=== PATIENT | female | born 1935 | race Caucasian/White ===

== ENCOUNTER 2020-10-21 09:04 | Outpatient (REF) | payer MEDICARE, SELFPAY ==
--- NOTE | ~2020-10-21 | MM_ITS ---
EXAMINATION: MM SCREENING DIGITAL BREAST TOMOSYNTHESIS, BILATERAL CLINICAL INFORMATION: Screening. Asymptomatic. Prior history LCIS The lifetime risk of breast cancer based on the Tyrer-Cuzick Model is 8%. COMPARISON: Mammography: 10/16/2019, 10/10/2018, 09/24/2017, 08/28/2017. TECHNIQUE: Digital breast tomosynthesis is performed in both the craniocaudal and mediolateral oblique views along with computer-aided detection (CAD). Synthesized 2D images are generated from the tomosynthesis. FINDINGS: There are scattered areas of fibroglandular density (ACR BI-RADS breast composition Category b). There are no significant masses, abnormal calcifications, or other abnormalities. Parenchymal pattern is similar to prior exams. Again, there is a stable mass anterior lower inner quadrant with adjacent biopsy clip marker. Numerous bilateral calcifications are similar in number and distribution to prior exams. No significant changes. MM/MM tomosynthesis screening BI IMPRESSION: There are no significant changes from prior exams. ASSESSMENT: BI-RADS 2: Benign RECOMMENDATION: Routine annual mammography screening. This patient's information was entered into a reminder system with a target due date for their next mammogram.
== END 2020-10-21 09:05 | disposition home or self-care (01) ==
LOC: HO.MAMMO 09:04
PROVIDERS: PCP Internal Medicine; Visit Provider Internal Medicine
DX: Z12.31 Encounter for screening mammogram for malignant neoplasm of breast (principal)
CPT/HCPCS: 77063; 77067

== ENCOUNTER 2021-10-24 12:04 | Outpatient (REF) | payer MEDICARE, SELFPAY ==
--- NOTE | ~2021-10-24 | MM_ITS ---
EXAMINATION: MM SCREENING DIGITAL BREAST TOMOSYNTHESIS, BILATERAL CLINICAL INFORMATION: Screening. Asymptomatic. Prior history LCIS. COMPARISON: Mammography: 10/21/2020, 10/16/2019, 10/10/2018 TECHNIQUE: Digital breast tomosynthesis is performed in both the craniocaudal and mediolateral oblique views along with computer-aided detection (CAD). Synthesized 2D images are generated from the tomosynthesis. FINDINGS: There are scattered areas of fibroglandular density (ACR BI-RADS breast composition Category b). There is stable nodule anterior 7:00 left breast with adjacent biopsy clip marker. The breast parenchymal pattern is similar to prior studies and there is no interval mass or architectural abnormality or abnormal calcifications. Numerous bilateral punctate and coarse and vascular calcifications are again seen similar in number and distribution to prior studies. The axilla are unremarkable. There are no significant changes. MM/MM tomosynthesis screening BI IMPRESSION: No significant changes from prior studies. ASSESSMENT: BI-RADS 2: Benign RECOMMENDATION: Routine annual mammography screening. This patient's information was entered into a reminder system with a target due date for their next mammogram.
== END 2021-10-24 12:05 | disposition home or self-care (01) ==
LOC: HO.MAMMO 12:04
PROVIDERS: PCP Internal Medicine; Visit Provider Internal Medicine
DX: Z12.31 Encounter for screening mammogram for malignant neoplasm of breast (principal)
CPT/HCPCS: 77063; 77067

== ENCOUNTER 2021-12-27 07:28 | Outpatient (REF) | payer MEDICARE, SELFPAY ==
--- NOTE | ~2021-12-27 | XR_ITS ---
EXAMINATION: XR LUMBOSACRAL SPINE CLINICAL INFORMATION: Low back pain and right-sided sciatica COMPARISON: None TECHNIQUE: Three views of the lumbosacral spine. FINDINGS: There is curvature of the lumbar spine to the right. Bone alignment is otherwise normal. No fracture or dislocation is seen. There is multilevel degenerative disc disease and spondylosis. There is multilevel facet arthritis. There is evidence of atherosclerotic disease. XR/XR lumbar spine 2-3V IMPRESSION: Scoliosis and degenerative changes.
[2021-12-27 11:33] LABS: Appearance Urine CLEAR; Color Urine YELLOW; Glucose Urine UA NEG (NEG); Leukocyte Esterase Urine NEG (NEG); Nitrite Urine NEG (NEG); Specific Gravity - Urine 1.015 (1.005-1.025); Urine Blood NEG (NEG); Urine Ketones NEG (NEG); Urine Protein TRACE MG/DL (NEG-TRACE)
[2021-12-27 11:35] LABS: MANUAL DIFF FLAG NO
[2021-12-27 11:44] LABS: Basophils Absolute Auto 0.1 X10*3/uL (0.0-0.2); Basophils Percent Auto 1.3 % (0-2); Eosinophils Absolute Auto 0.3 X10*3/uL (0.0-0.4); Eosinophils Percent Auto 5.2 % (0-4); Hematocrit 39.6 % (37.0-47.0); Hemoglobin 13.1 g/dl (12.0-16.0); Imm Gran Abs Auto 0.01 X10*3/uL (0.00-0.03); Imm Gran Pct Auto 0.2 % (0.0-0.4); Lymphocytes Absolute Auto 1.5 X10*3/uL (1.2-4.9); Lymphocytes Percent Auto 28.1 % (20-40); Mean Corpuscular HGB Conc 33.1 g/dl (31.0-35.0); Mean Corpuscular Hemoglobin 31.8 pg (27.0-33.0); Mean Corpuscular Volume 96.1 fL (80.0-98.0); Mean Platelet Volume 10.9 fL (9.4-12.3); Monocytes Absolute Auto 0.5 X10*3/uL (0.1-1.2); Monocytes Percent Auto 9.2 % (2-11); Neutrophils Absolute Auto 2.9 x10*3/uL (2.0-8.3); Platelet Count 227 X10*3/uL (160-400); Red Blood Count 4.12 X10*6/uL (4.20-5.50); Red Cell Distribution Width 13.2 % (11.0-16.0); White Blood Count 5.2 X10*3/uL (4.8-10.8)
[2021-12-27 11:54] LABS: Alanine Aminotransferase 11 U/L (0-31); Albumin Level 4.1 g/dL (3.5-5.0); Alkaline Phosphatase 66 U/L (39-117); Anion Gap 13 (12-20); Aspartate Amino Transferase 16 U/L (5-31); Bilirubin Total 1.3 mg/dL (0.0-1.0); Blood Urea Nitrogen 17 mg/dL (9-16); Calcium 9.7 mg/dL (8.4-10.2); Carbon Dioxide 28 mmol/L (22-29); Chloride 102 mmol/L (96-108); Cholesterol 104 mg/dL; Estimated Glomerular Filt Rate > 60; Glucose Fasting 111 mg/dL (60-99); HDL Cholesterol 55 mg/dL; Iron 77 mcg/dL (30-160); LDL Cholesterol Calculated 35 mg/dl; Percent Iron Saturation 33 % (15-50); Potassium 4.1 mmol/L (3.3-5.1); Sodium 139 mmol/L (135-145); Total Iron Binding Capacity 235 mcg/dL (228-428); Total Protein 6.8 g/dL (6.5-8.0); Triglycerides 73 mg/dL; Unsaturated Iron Binding 158 ug/dL
[2021-12-27 11:56] LABS: Estimated Average Glucose 120 mg/dL; Hemoglobin A1c % 5.8 %
[2021-12-27 11:59] LABS: RBC Urine 0 /HPF (0); Renal Epithelial Cells Urine TRACE /LPF; Squamous Epithelial Cell Urine TRACE /LPF; WBC Urine 0 /HPF (0-4)
[2021-12-27 12:18] LABS: Ferritin 37 ng/mL (10-250); Thyroid Stimulating Hormone 3.44 uIU/mL (0.32-4.0); Vitamin D 25-OH Total 36.5 ng/mL (>30)
[2021-12-27 12:58] LABS: Creatinine Urine 117.47 mg/dL; Microalbum/Creatinine Ratio Ur 94.4 ug/mg cr
[2021-12-27 13:58] LABS: Folate > 20.0 ng/mL (> or = 4.0); Vitamin B12 158 pg/mL (200-900)
== END 2021-12-27 07:29 | disposition home or self-care (01) ==
LOC: HO.HMGCLDS 07:28
PROVIDERS: Visit Provider Internal Medicine
DX: E11.9 Type 2 diabetes mellitus without complications (principal); M54.41 Lumbago with sciatica, right side; I10 Essential (primary) hypertension; E78.00 Pure hypercholesterolemia, unspecified; E83.119 Hemochromatosis, unspecified; E53.8 Deficiency of other specified B group vitamins
CPT/HCPCS: 36415; 72100; 80053; 80061; 81001; 82043; 82306; 82607; 82728; 82746; 83036; 83540; 84443; 85025

== ENCOUNTER 2022-12-06 09:04 | Outpatient (REF) | payer MEDICARE, SELFPAY ==
[2022-12-06 11:33] LABS: MANUAL DIFF FLAG NO
[2022-12-06 11:49] LABS: Basophils Absolute Auto 0.1 X10*3/uL (0.0-0.2); Basophils Percent Auto 1.8 % (0-2); Eosinophils Absolute Auto 0.4 X10*3/uL (0.0-0.4); Eosinophils Percent Auto 5.6 % (0-4); Hematocrit 40.2 % (37.0-47.0); Hemoglobin 13.3 g/dl (12.0-16.0); Imm Gran Abs Auto 0.02 X10*3/uL (0.00-0.03); Imm Gran Pct Auto 0.3 % (0.0-0.4); Lymphocytes Absolute Auto 1.5 X10*3/uL (1.2-4.9); Lymphocytes Percent Auto 23.1 % (20-40); Mean Corpuscular HGB Conc 33.1 g/dl (31.0-35.0); Mean Corpuscular Hemoglobin 31.4 pg (27.0-33.0); Mean Corpuscular Volume 94.8 fL (80.0-98.0); Mean Platelet Volume 11.1 fL (9.4-12.3); Monocytes Absolute Auto 0.6 X10*3/uL (0.1-1.2); Monocytes Percent Auto 8.9 % (2-11); Neutrophils Percent Auto 60.3 % (45-73); Platelet Count 231 X10*3/uL (160-400); Red Blood Count 4.24 X10*6/uL (4.20-5.50); Red Cell Distribution Width 12.8 % (11.0-16.0); White Blood Count 6.6 X10*3/uL (4.8-10.8)
[2022-12-06 12:14] LABS: Alanine Aminotransferase 15 U/L (0-31); Albumin Level 4.2 g/dL (3.5-5.0); Alkaline Phosphatase 76 U/L (39-117); Anion Gap 13 (12-20); Aspartate Amino Transferase 20 U/L (5-31); Bilirubin Total 1.7 mg/dL (0.0-1.0); Blood Urea Nitrogen 11 mg/dL (9-16); Calcium 9.9 mg/dL (8.4-10.2); Carbon Dioxide 28 mmol/L (22-29); Chloride 106 mmol/L (96-108); Cholesterol 108 mg/dL; Estimated Glomerular Filt Rate > 60; Glucose Fasting 102 mg/dL (60-99); HDL Cholesterol 58 mg/dL; Iron 62 mcg/dL (30-160); LDL Cholesterol Calculated 37 mg/dl; Percent Iron Saturation 29 % (15-50); Potassium 5.4 mmol/L (3.3-5.1); Sodium 142 mmol/L (135-145); Total Iron Binding Capacity 216 mcg/dL (228-428); Total Protein 6.8 g/dL (6.5-8.0); Triglycerides 69 mg/dL; Unsaturated Iron Binding 154 ug/dL
[2022-12-06 12:19] LABS: Estimated Average Glucose 114 mg/dL; Hemoglobin A1c % 5.6 %
[2022-12-06 12:56] LABS: Ferritin 34 ng/mL (10-250); Folate > 20.0 ng/mL (> or = 4.0); Thyroid Stimulating Hormone 3.04 uIU/mL (0.32-4.0); Vitamin B12 1248 pg/mL (200-900); Vitamin D 25-OH Total 41.1 ng/mL (>30)
== END 2022-12-06 09:05 | disposition home or self-care (01) ==
LOC: HO.HMGCLDS 09:04
PROVIDERS: PCP Internal Medicine; Visit Provider Internal Medicine
DX: E11.9 Type 2 diabetes mellitus without complications (principal); E78.00 Pure hypercholesterolemia, unspecified; I10 Essential (primary) hypertension; E83.119 Hemochromatosis, unspecified; E53.8 Deficiency of other specified B group vitamins; M54.31 Sciatica, right side
CPT/HCPCS: 36415; 80053; 80061; 82306; 82607; 82728; 82746; 83036; 83540; 84443; 85025

== ENCOUNTER 2022-12-11 12:03 | Outpatient (REF) | payer MEDICARE, SELFPAY ==
--- NOTE | ~2022-12-11 | MM_ITS ---
EXAMINATION: MM SCREENING DIGITAL BREAST TOMOSYNTHESIS, BILATERAL CLINICAL INFORMATION: Screening. Asymptomatic. Age 87. Prior report 2013 notes history lower left excisional biopsy 2010 (intraductal papilloma and adjacent LCIS). COMPARISON: Prior mammography exams, including most recent 10/24/2021. TECHNIQUE: Digital breast tomosynthesis is performed in both the craniocaudal and mediolateral oblique views along with computer-aided detection (CAD). Synthesized 2D images are generated from the tomosynthesis. FINDINGS: There are scattered areas of fibroglandular density (ACR BI-RADS breast composition Category b). Parenchymal pattern is similar to prior studies. There is no developing density or significant mass or interval architectural abnormality. There is a chronic stable nodule anterior medial left breast with adjacent biopsy clip marker. There are minor post therapy changes on left with mild reduced breast size. Again, there are numerous bilateral punctate and some coarse and vascular calcifications similar in number and distribution. The axilla and skin contours are unremarkable. MM/MM tomosynthesis screening BI IMPRESSION: No mammographic evidence of malignancy. ASSESSMENT: BI-RADS 2: Benign RECOMMENDATION: Routine annual mammography screening. This patient's information was entered into a reminder system with a target due date for their next mammogram.
== END 2022-12-11 12:04 | disposition home or self-care (01) ==
LOC: HO.MAMMO 12:03
PROVIDERS: PCP Internal Medicine; Visit Provider Internal Medicine
DX: Z12.31 Encounter for screening mammogram for malignant neoplasm of breast (principal)
CPT/HCPCS: 77063; 77067

== ENCOUNTER 2022-12-18 08:27 | Outpatient (REF) | payer MEDICARE, SELFPAY ==
--- NOTE | ~2022-12-18 | XR_ITS ---
EXAMINATION: XR HIP, RIGHT CLINICAL INFORMATION: Pain. COMPARISON: None available. TECHNIQUE: Two views of the right hip. FINDINGS: Advanced degenerative osteoarthritis of the right hip with marked predominant superolateral joint space narrowing, subcortical sclerosis and osteophytes. Associated deformity of the femoral head raising the possibility of superimposed osteonecrosis is and fracture. Normal radiographic appearance of the right SI joint and pubic symphysis. Atherosclerotic disease. XR/XR hip RT min 2V IMPRESSION: Advanced degenerative osteoarthritis of the right hip with deformity of the femoral head raising the possibility of superimposed osteonecrosis and fracture.
[2022-12-18 11:03] LABS: Appearance Urine Clear; Color Urine Dark Yellow; Glucose Urine UA Negative (Negative); Leukocyte Esterase Urine Negative (Negative); Nitrite Urine Negative (Negative); PH 5.5 (5.0-9.0); Specific Gravity - Urine 1.025 (1.005-1.025); UMIC TRIGGER UA YES; Urine Blood Negative (Negative); Urine Ketones Trace mg/dL (Negative); Urine Protein 30 (1+) mg/dL (Neg-Trace)
[2022-12-18 11:09] LABS: Bacteria Urine None Seen (None Seen); Hyaline Casts Urine 0-2 /LPF (0-2); RBC Urine 0-2 /HPF (0-2); Squamous Epithelial Cell Urine 0-2 /HPF (0-2); WBC Urine 0-5 /HPF (0-5)
[2022-12-18 12:21] LABS: Creatinine Urine 157.33 mg/dL; Microalbum/Creatinine Ratio Ur 75.6 ug/mg cr
== END 2022-12-18 08:28 | disposition home or self-care (01) ==
LOC: HO.HMGCX 08:27
PROVIDERS: PCP Internal Medicine; Visit Provider Internal Medicine
DX: M25.551 Pain in right hip (principal); I10 Essential (primary) hypertension; E11.9 Type 2 diabetes mellitus without complications
CPT/HCPCS: 73502; 81001; 82043

== ENCOUNTER 2023-01-03 09:00 | Outpatient (REF) | payer MEDICARE, SELFPAY ==
--- NOTE | ~2023-01-03 | XR_ITS ---
EXAMINATION: XR PELVIS CLINICAL INFORMATION: Pain COMPARISON: Right hip x-ray December 2022 TECHNIQUE: AP view of the pelvis. FINDINGS: There is severe right hip osteoarthritis with joint space narrowing and osteophyte formation and increased sclerosis. There is flattening of the right femoral head. The right acetabulum appears shallow and the femoral head is positioned laterally in the acetabulum. The contour of the femoral head is normal questionable for osteonecrosis. The right hip and iliac crest is higher than the left. There is mild left hip osteoarthritis. Bones of the pelvis are unremarkable. Degenerative changes visualized lower lumbar spine. Atherosclerotic disease. XR/XR pelvis 1-2V IMPRESSION: Severe right hip osteoarthritis. Abnormal contour of the femoral head questionable for AVN. The right hip and iliac crest is higher than the left.
== END 2023-01-03 09:01 | disposition home or self-care (01) ==
LOC: HO.HOSX 09:00
PROVIDERS: PCP Internal Medicine; Visit Provider Orthopaedic Surgery
DX: M16.11 Unilateral primary osteoarthritis, right hip (principal); Z79.899 Other long term (current) drug therapy
CPT/HCPCS: 72170; 99202

== ENCOUNTER → 2023-03-12 12:41 | Outpatient (BNVA) | payer MEDICARE, SELFPAY | PROVIDERS: Visit Provider Orthopaedic Surgery ==

== ENCOUNTER 2023-04-04 13:44 | Outpatient (AMB) | payer MEDICARE, SELFPAY ==
--- NOTE | 2023-04-04 13:51 | A.OFFVIS_ITS ---
Intake Vital Signs 04/04/23 13:52 Height 5 ft 2 in Weight 101 lb BMI 18.5 Intake Visit Reasons: Preop RT MERT 04/09/23 NE Intake Note: Kristina an 87 year old female who presents today for a preoperative right MERT on 04/09/23. Pain management agreement reviewed and signed. Allergies azithromycin [From ZITHROMAX] Allergy (Severe, Verified 04/04/23 13:56) SEVERE GI PAIN/PASSED OUT, syncope HPI HPI Comments History of Present Illness Details Ms Lopez presents to the office today for preop visit. She is scheduled for right total hip arthroplasty with Dr. Loving. She continues to have ongoing pain and difficulty with ambulation in the right hip, which is affecting her quality of life; therefore, she has elected to move forward with surgery. 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 Review of Systems Const All systems reviewed & are unremarkable except as noted in HPI and below Physical Exam Vital Signs: BMI result Body Mass Index 18.5 Const General: cooperative and no acute distress Orientation/consciousness: patient oriented x3 HEENT Head: Yes normocephalic and Yes atraumatic Eyes EOM: EOMs intact bilaterally Neck Neck: Yes normal visual inspection and Yes no lymphadenopathy Resp Effort & Inspection: normal respiratory effort and able to speak in complete sentences Cardio Jugular venous distension: no JVD Peripheral pulses: Peripheral pulses 2+ throughout GI Inspection: Yes normal to inspection Palpation (GI): Soft to palpation Skin General skin exam: no rashes or lesions noted Rashes: no rashes Neuro General: patient oriented x3 Extrem Other: Right Hip: Severely antalgic gait with excessive motion on the right ~2cm leg length discrepancy Skin is normal to inspection. No open wound or abrasion. Psych Appearance: grossly normal Affect: normal affect Attitude: cooperative Results Reviewed Results Reviewed: XR pelvis 1-2V 01/03/23 IMPRESSION: Severe right hip osteoarthritis. Abnormal contour of the femoral head questionable for AVN. The right hip and iliac crest is higher than the left. Assessment & Plan Assessment & Plan (1) Osteoarthritis of right hip: Code(s): M16.11 - Unilateral primary osteoarthritis, right hip Plan: I discussed in detail the procedure and what to expect pre and post operatively. We discussed the risks, benefits and alternatives to the surgery as well as the rehabilitation course. The risks; which include, but are not limited to infection, bleeding, nerve injury, ongoing pain, swelling, and stiffness, perioperative risk of injury to bones and soft tissues, and blood clots. I?ve answered all questions and with their understanding they have consented to move forward with Right total hip arthroplasty with Dr. Loving Patient Instructions: Scribed for Mercedes Treadwell PA-C, by Edwar Meléndez medical oncology physician, on 04/04/2023 at 1:45 PM FARZANEH. Mercedes Ashford PA-C, have personally reviewed and agree with the information entered by the scribe. Coding Level of Care Code Est Pt Level 3 (47131) Diagnoses Osteoarthritis of right hip M16.11
[2023-04-04 13:52] VITALS: BMI 18.5
== END 2023-04-04 14:12 | disposition home or self-care (01) ==
PROVIDERS: Visit Provider Physician Assistant
DX: M16.11 Unilateral primary osteoarthritis, right hip (principal)
CPT/HCPCS: 99024

== ENCOUNTER → 2023-04-04 13:44 | Outpatient (BNVA) | payer MEDICARE, SELFPAY | PROVIDERS: Visit Provider Physician Assistant ==

== ENCOUNTER 2023-04-09 09:40 | Inpatient (IN) | payer MEDICARE, SELFPAY ==
--- NOTE | 2023-04-02 | ECG_ITS ---
Test Reason : PREOP Blood Pressure : / mmHG Vent. Rate : 083 BPM Atrial Rate : 083 BPM P-R Int : 156 ms QRS Dur : 078 ms QT Int : 372 ms P-R-T Axes : 061 004 044 degrees QTc Int : 437 ms Normal sinus rhythm Cannot rule out Inferior infarct , age undetermined Abnormal ECG When compared with ECG of 10-MAR-2020 15:48, No significant change was found Referred By: Mercedes Treadwell Electronically Signed By:ROBERTO AGUILAR
[2023-04-02 11:57] VITALS: BP 164/77; PULSE 94; RESP 16; O2SAT 99; BMI 18.4
[2023-04-02 13:08] LABS: MANUAL DIFF FLAG NO
[2023-04-02 14:28] LABS: MRSA Nasal PCR NEGATIVE (Negative); SA Nasal PCR NEGATIVE (Negative)
[2023-04-02 14:53] LABS: Basophils Absolute Auto 0.1 X10*3/uL (0.0-0.2); Basophils Percent Auto 1.5 % (0-2); Eosinophils Absolute Auto 0.4 X10*3/uL (0.0-0.4); Hematocrit 40.6 % (37.0-47.0); Hemoglobin 13.2 g/dl (12.0-16.0); Imm Gran Abs Auto 0.02 X10*3/uL (0.00-0.03); Imm Gran Pct Auto 0.3 % (0.0-0.4); Lymphocytes Absolute Auto 1.5 X10*3/uL (1.2-4.9); Mean Corpuscular HGB Conc 32.5 g/dl (31.0-35.0); Mean Corpuscular Hemoglobin 31.2 pg (27.0-33.0); Monocytes Absolute Auto 0.6 X10*3/uL (0.1-1.2); Monocytes Percent Auto 8.4 % (2-11); Neutrophils Absolute Auto 4.6 x10*3/uL (2.0-8.3); Neutrophils Percent Auto 62.8 % (45-73); Platelet Count 235 X10*3/uL (160-400); Red Blood Count 4.23 X10*6/uL (4.20-5.50); Red Cell Distribution Width 12.6 % (11.0-16.0); White Blood Count 7.3 X10*3/uL (4.8-10.8)
[2023-04-02 15:36] LABS: Anion Gap 17 (12-20); Blood Urea Nitrogen 13 mg/dL (9-16); Carbon Dioxide 21 mmol/L (22-29); Chloride 107 mmol/L (96-108); Creatinine Clr Calc Pharmacy 44.1; Estimated Glomerular Filt Rate > 60; Potassium 4.1 mmol/L (3.3-5.1); Sodium 141 mmol/L (135-145)
--- NOTE | 2023-04-08 09:29 | HO.ANESPROP2 ---
Documented by User: Sadaf Hennessy NP 04/08/23 09:31 HPI - Anesthesia Eval Consult details Narrative: 87yo F for Right Hip Total Replacement Medically optimized PMFSH Active Problems Active Problems: All Active Problems (Updated 04/02/23 @ 11:48 by Bibi Aguillon RN) Lumbar radiculopathy (Acute) Osteoarthritis of right hip (Acute) Diabetes (Acute) Past Medical History Medical History Diabetes High blood pressure High cholesterol Seasonal allergies Surgical History Surgical History Hx of breast biopsy Hx of colonoscopy Social History Social History Are you a primary residential care facility manager to a significant other at home: No Do you presently have visiting nurse or other home services: No Patient Tobacco Use Status: Former Tobacco user Quit Date: 2003 Tobacco use type: Cigarette Years Smoked: 25 Use of substances other than those prescribed or required for medical reasons: No Have you been hit, kicked, punched, or otherwise hurt by someone within the past year? 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 Meds Allergies Allergy/AdvReac Type Severity Reaction Status Date / Time azithromycin [From ZITHROMAX] Allergy Severe SEVERE GI Verified 04/09/23 10:44 PAIN/PASSED OUT, syncope Home Medications Medication Instructions Recorded Confirmed Last Taken Type amlodipine 10 mg tablet 10 mg PO DAILY 03/01/22 04/02/23 04/09/23 History atorvastatin 40 mg tablet 40 mg PO BEDTIME 03/01/22 04/02/23 Unknown History cyanocobalamin (vitamin B-12) 1,000 mcg PO DAILY 03/01/22 04/02/23 Unknown History 1,000 mcg tablet (Vitamin B-12) lisinopril 40 mg tablet 20 mg PO DAILY 03/01/22 04/02/23 04/09/23 History metformin 1,000 mg tablet 1,000 mg PO BID 03/01/22 04/02/23 Unknown History multivitamin 1 tab PO DAILY 03/01/22 04/02/23 Unknown History calcium carbonate 200 mg calcium 200 mg PO DAILY 04/02/23 04/02/23 Unknown History (500 mg) chewable tablet (Tums) loratadine 10 mg tablet (Claritin) 10 mg PO DAILY PRN Allergy Symptoms 04/02/23 04/02/23 Unknown History Exam Exam Date and Time: April 08, 2023 0929 Height,Weight and Vital Signs: Height 5 ft 2 in Weight 45.7 kg Last Vital Signs Pulse 94 04/02/23 11:57 Resp 16 04/02/23 11:57 BP 164/77 H 04/02/23 11:57 Pulse Ox 99 04/02/23 11:57 O2 Del Method Room Air 04/02/23 11:57 Pertinent Lab Results Pertinent Lab Results: Laboratory Tests 04/02/23 04/02/23 04/02/23 12:30 13:03 13:07 WBC 7.3 RBC 4.23 Hgb 13.2 Hct 40.6 MCV 96.0 MCH 31.2 MCHC 32.5 RDW 12.6 Plt Count 235 MPV 11.0 Immature Gran % (Auto) 0.3 Neut % (Auto) 62.8 Lymph % (Auto) 21.0 [place] % (Auto) 8.4 Eos % (Auto) 6.0 H Baso % (Auto) 1.5 Lymph # (Auto) 1.5 [place] # (Auto) 0.6 Eos # (Auto) 0.4 Baso # (Auto) 0.1 Abs Immat Gran (auto) 0.02 Absolute Neuts (auto) 4.6 Absolute Nucleated RBC 0.000 Nucleated RBC % (auto) 0.0 Sodium Potassium Chloride Carbon Dioxide Anion Gap BUN Creatinine Estim Creat Clear Calc Estimated GFR Nasal Screen MRSA (PCR) NEGATIVE Nasal S. aureus Screen NEGATIVE Nasal MRSA/S.aureus Interp SEE NOTE Blood Type O Positive Antibody Screen NEGATIVE 04/02/23 13:07 WBC RBC Hgb Hct MCV MCH MCHC RDW Plt Count MPV Immature Gran % (Auto) Neut % (Auto) Lymph % (Auto) [place] % (Auto) Eos % (Auto) Baso % (Auto) Lymph # (Auto) [place] # (Auto) Eos # (Auto) Baso # (Auto) Abs Immat Gran (auto) Absolute Neuts (auto) Absolute Nucleated RBC Nucleated RBC % (auto) Sodium 141 Potassium 4.1 D Chloride 107 Carbon Dioxide 21 L Anion Gap 17 BUN 13 Creatinine 0.66 Estim Creat Clear Calc 44.1 Estimated GFR > 60 Nasal Screen MRSA (PCR) Nasal S. aureus Screen Nasal MRSA/S.aureus Interp Blood Type Antibody Screen Narrative Narrative: EKG 04/2023 Vent. Rate : 083 BPM ? ? Atrial Rate : 083 BPM ?? P-R Int : 156 ms? QRS Dur : 078 ms ? ? QT Int : 372 ms ? ? ? P-R-T Axes : 061 004 044 degrees ?? QTc Int : 437 ms ? Normal sinus rhythm Cannot rule out Inferior infarct , age undetermined Abnormal ECG When compared with ECG of 10-MAR-2020 15:48, No significant change was found Assessment and Plan Assessment Anesthesia Assessment: Chart Reviewed Documented by User: Daniel Carrillo MD 04/09/23 12:55 PMF Past Medical History Medical History Diabetes High blood pressure High cholesterol Seasonal allergies Family History Family history of problems with anesthesia: No Surgical History Surgical History Hx of breast biopsy Hx of colonoscopy History of Problems with Anesthesia: No Social History Social History Are you a primary residential care facility manager to a significant other at home: No Do you presently have visiting nurse or other home services: No Patient Tobacco Use Status: Former Tobacco user Quit Date: 2003 Tobacco use type: Cigarette Years Smoked: 25 Use of substances other than those prescribed or required for medical reasons: No Have you been hit, kicked, punched, or otherwise hurt by someone within the past year? 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 Meds Allergies Allergy/AdvReac Type Severity Reaction Status Date / Time azithromycin [From ZITHROMAX] Allergy Severe SEVERE GI Verified 04/09/23 10:44 PAIN/PASSED OUT, syncope Home Medications Medication Instructions Recorded Confirmed Last Taken Type amlodipine 10 mg tablet 10 mg PO DAILY 03/01/22 04/02/23 04/09/23 History atorvastatin 40 mg tablet 40 mg PO BEDTIME 03/01/22 04/02/23 Unknown History cyanocobalamin (vitamin B-12) 1,000 mcg PO DAILY 03/01/22 04/02/23 Unknown History 1,000 mcg tablet (Vitamin B-12) lisinopril 40 mg tablet 20 mg PO DAILY 03/01/22 04/02/23 04/09/23 History metformin 1,000 mg tablet 1,000 mg PO BID 03/01/22 04/02/23 Unknown History multivitamin 1 tab PO DAILY 03/01/22 04/02/23 Unknown History calcium carbonate 200 mg calcium 200 mg PO DAILY 04/02/23 04/02/23 Unknown History (500 mg) chewable tablet (Tums) loratadine 10 mg tablet (Claritin) 10 mg PO DAILY PRN Allergy Symptoms 04/02/23 04/02/23 Unknown History Exam Airway Mallampati Class: II TM Dist: >3cm Neck ROM: Limited Loose/Missing/Broken Teeth: Yes Assessment and Plan Assessment Anesthesia Assessment: Anesthesia Plan Discussed Final Anesthetic Review Family History of Problems with Anesthesia: No History of Problems with Anesthesia: No NPO: Yes ASA Class: III Final Preanesthetic Review: No Changes in Pt Med Stat, Meds/Allgs Chart Reviewed, Consent Obtained/Reviewed and Anes Risks/Benef Reviewed Patient Risk: Intermediate Procedure Risk: Intermediate Anesthetic Plan Anesthetic Plan: GA Disposition: Standard PACU
[2023-04-09] VITALS (10 sets, daily range): BP systolic 122–145; BP diastolic 47–77; PULSE 70–92; RESP 12–19; TEMP 35.8–36.8; O2SAT 96–100
--- NOTE | ~2023-04-09 | XR_ITS ---
EXAMINATION: XR PELVIS CLINICAL INFORMATION: Right total hip arthroplasty COMPARISON: Pelvis radiographs 01/03/2023 TECHNIQUE: AP view of the pelvis. FINDINGS: Post surgical changes of right total hip arthroplasty in apparent anatomic alignment. No evidence of hardware fracture or complication. Expected postsurgical change with subcutaneous emphysema, soft tissue swelling and soft tissue brunilda. Atherosclerotic vascular calcification. Osteopenia. Mild left hip osteoarthritis unchanged. 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 XR/XR pelvis 1-2V IMPRESSION: 1. Post surgical changes of right total hip arthroplasty in apparent anatomic alignment. No evidence of hardware fracture or complication. 2. Expected postsurgical change with subcutaneous emphysema, soft tissue swelling and soft tissue brunilda.
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
[2023-04-09 10:12] LABS: Glucose, Whole Blood 116 mg/dL (60-115)
[2023-04-09] MEDS: Lactated Ringers 1,000 ML 100 ML IVCONT ×2 (10:41→16:23)
[2023-04-09] MEDS: ceFAZolin Sodium/Dextrose,Iso 2 GM/50 ML PIGGYBACK IV ×2 (11:18→16:21)
[2023-04-09] MEDS: Acetaminophen 1,000 MG/100 ML PIGGYBACK 400 MG IV (13:00)
--- NOTE | 2023-04-09 13:08 | P.BOP_ITS ---
Brief Operative Note Date of Service: 04/09/23 Pre-op diagnosis: Right hip OA Post-op diagnosis: same Procedure: Right MERT Implants: Ashley Trident 2 48 with Accolade2 # 3 127 deg and + 8 MDM Surgeon: Mike Loving MD Anesthesia: GETA and local Was an Band Head Saw Operator used for this Procedure?: Yes Band Head Saw Operator: Mercedes Treadwell Estimated blood loss (mL): 250 IV fluids (mL): 850 Pathology: other Condition: stable Disposition: PACU
--- NOTE | 2023-04-09 13:08 | MHC.SHP ---
Pre-Procedural Eval Section A Date of Service: 04/09/23 The patient is an INPATIENT: No The History & Physical has been completed within 30 days and I have reviewed it.: Yes Section B Chief Complaint: RT MERT Allergies: Allergies Allergy/AdvReac Type Severity Reaction Status Date / Time azithromycin [From ZITHROMAX] Allergy Severe SEVERE GI Verified 04/09/23 10:44 PAIN/PASSED OUT, syncope Plan I have reviewed the history and physical and performed a pertinent physical examination on my patient. No changes have occurred unless specified. Time Spent With Patient Time: Total time managing care of this patient today ____ minutes.
[2023-04-09] MEDS: HYDROmorphone HCl 0.5 MG/0.5 ML SYRINGE 0.25 MG IVPUSH ×2 (13:40→13:45)
--- NOTE | 2023-04-09 14:38 | PHA.MEDREC ---
Pharmacy Consult ? Medication Reconciliation Pharmacy has completed the medication reconciliation. Reviewed med rec done by nursing (Bibi).
[2023-04-09] MEDS: 0.9 % Sodium Chloride Flush 3 ML SYRINGE IVFLUSH ×2 (15:38→20:11)
--- NOTE | 2023-04-09 15:59 | PM.IMCN ---
History of Present Illness Data of Consult Service Date: 04/09/23 Primary Care Provider: Fly Flor DO HPI Reason for consult: dm, htn 87F PMH HTN, DM, HLD, admitted for elective right hip arthroplasty due to osteoarthritis. Medical consult requested for management of comorbidities. Patient denies any acute complaints. Review of Systems Review of Systems: Yes all other systems are reviewed and are negative PMFSH Medical History Diabetes High blood pressure High cholesterol Seasonal allergies Surgical History Hx of breast biopsy Hx of colonoscopy Social History Are you a primary animal care provider to a significant other at home: No Do you presently have visiting nurse or other home services: No Patient Tobacco Use Status: Former Tobacco user Quit Date: 2003 Tobacco use type: Cigarette Years Smoked: 25 Use of substances other than those prescribed or required for medical reasons: No Have you been hit, kicked, punched, or otherwise hurt by someone within the past year? 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 Meds Allergies Allergy/AdvReac Type Severity Reaction Status Date / Time azithromycin [From ZITHROMAX] Allergy Severe SEVERE GI Verified 04/09/23 10:44 PAIN/PASSED OUT, syncope Active Medications: Current Medications Acetaminophen (Acetaminophen 325 Mg Tablet) 650 mg PO Q6H PRN PRN Reason: Pain, Mild (Pain Scale 1-3) Aspirin (Aspirin 325 Mg Tablet) 325 mg PO BID MESFIN Atorvastatin Calcium (Atorvastatin Calcium 40 Mg Tablet) 40 mg PO BEDTIME MESFNI Calcium Carbonate (Calcium Carbonate 750 Mg Tab.Chew) 750 mg PO DAILY MESFIN Celecoxib (Celecoxib 200 Mg Capsule) 200 mg PO BID MESFIN Cyanocobalamin (Cyanocobalamin (Vitamin B-12) 1,000 Mcg Tablet) 1,000 mcg PO DAILY MESFIN Docusate Sodium (Docusate Sodium 100 Mg Capsule) 100 mg PO BID MESFIN Hydromorphone HCl (Hydromorphone Hcl 0.5 Mg/0.5 Ml Syringe) 0.25 mg IVPUSH Q4H PRN; Protocol PRN Reason: Pain, Severe (Pain Scale 7-10) Lactated Ringer's (Lr) 1,000 mls @ 100 mls/hr IVCONT .Q10H MESFIN Stop: 04/10/23 13:18 Cefazolin Sodium/Dextrose (Ancef) 2 gm in 50 mls @ 100 mls/hr IV POSTOP ONE Stop: 04/09/23 17:29 Loratadine (Loratadine 10 Mg Tablet) 10 mg PO DAILY PRN PRN Reason: Allergy Symptoms Metformin HCl (Metformin Hcl 1,000 Mg Tablet) 1,000 mg PO BID [facility] Multivitamins/Vitamin C (Multivitamin Tablet) 1 tab PO DAILY [facility] Ondansetron HCl (Ondansetron Hcl 4 Mg/2 Ml Vial) 4 mg IVPUSH Q8H PRN PRN Reason: Nausea and Vomiting Oxycodone HCl (Oxycodone Hcl Immed Release 5 Mg Tablet) 5 mg PO Q4H PRN PRN Reason: Pain, Moderate(Pain Scale 4-6) Sodium Chloride (0.9 % Sodium Chloride Flush 3 Ml Syringe) 3 ml IVFLUSH QSHIFT [facility] Last Admin: 04/09/23 15:38 Dose: 3 ml Home Medications Medication Instructions Recorded Confirmed Last Taken Type amlodipine 10 mg tablet 10 mg PO DAILY 03/01/22 04/02/23 04/09/23 History atorvastatin 40 mg tablet 40 mg PO BEDTIME 03/01/22 04/02/23 Unknown History cyanocobalamin (vitamin B-12) 1,000 mcg PO DAILY 03/01/22 04/02/23 Unknown History 1,000 mcg tablet (Vitamin B-12) lisinopril 40 mg tablet 20 mg PO DAILY 03/01/22 04/02/23 04/09/23 History metformin 1,000 mg tablet 1,000 mg PO BID 03/01/22 04/02/23 Unknown History multivitamin 1 tab PO DAILY 03/01/22 04/02/23 Unknown History calcium carbonate 200 mg calcium 200 mg PO DAILY 04/02/23 04/02/23 Unknown History (500 mg) chewable tablet (Tums) loratadine 10 mg tablet (Claritin) 10 mg PO DAILY PRN Allergy Symptoms 04/02/23 04/02/23 Unknown History Physical Exam Vital Signs and Narrative: Vital Signs: Last Vital Signs Temp 98 F 04/09/23 14:15 Pulse 77 04/09/23 14:30 Resp 13 04/09/23 14:30 BP 134/67 04/09/23 14:30 Pulse Ox 100 04/09/23 14:30 O2 Del Method Nasal Cannula 04/09/23 14:30 O2 Flow Rate 2 04/09/23 14:30 BMI result Body Mass Index 18.4 General: AO X 3, no acute distress Resp: CTA bilateral, no accessory muscles used CVS: S1,S2,RRR GI: soft, non tender, non distended Neuro: motor grossly intact, alert Psych: appropriate affect, appropriate insight Results Labs 04/02/23 13:07 04/02/23 13:07 Labs: Laboratory Results - last 24 hr 04/09/23 09:54 POC Glucose 116 H Assessment and Plan (1) Osteoarthritis of right hip: Status: Acute Plan 87F PMH HTN, DM, HLD, admitted for elective right hip arthroplasty due to osteoarthritis Diabetes Continue metformin, monitor point of care Hypertension Monitor off amlodipine and lisinopril postoperatively Likely restart tomorrow or the next day as BP rises Hyperlipidemia Statin DVT prophylaxis - aspirin b.i.d. Will sign off, please recall as needed Time Spent With Patient Time: Total time managing care of this patient today ____ minutes.
[2023-04-09 16:23] LABS: Glucose, Whole Blood 167 mg/dL (60-115)
[2023-04-09] MEDS: Acetaminophen 325 MG TABLET 650 MG PO (16:50)
[2023-04-09] MEDS: metFORMIN HCl 1,000 MG TABLET 1000 MG PO (16:51)
[2023-04-09] MEDS: oxyCODONE HCl Immed Release 5 MG TABLET PO (16:51)
[2023-04-09 20:00] LABS: Glucose, Whole Blood 186 mg/dL (60-115)
[2023-04-09] MEDS: Docusate Sodium 100 MG CAPSULE PO (20:06)
[2023-04-09] MEDS: Celecoxib 200 MG CAPSULE PO (20:07)
[2023-04-09] MEDS: Atorvastatin Calcium 40 MG TABLET PO (20:07)
[2023-04-09] MEDS: Loratadine 10 MG TABLET PO (20:07)
[2023-04-10] MEDS: oxyCODONE HCl Immed Release 5 MG TABLET PO ×3 (00:59→15:40)
[2023-04-10] MEDS: Lactated Ringers 1,000 ML 100 ML IVCONT ×2 (02:31→11:50)
[2023-04-10 03:28] VITALS: BP 115/56; PULSE 79; RESP 17; TEMP 36.1; O2SAT 96
[2023-04-10 06:37] LABS: MANUAL DIFF FLAG NO
[2023-04-10 06:41] LABS: Basophils Absolute Auto 0.1 X10*3/uL (0.0-0.2); Basophils Percent Auto 0.6 % (0-2); Eosinophils Absolute Auto 0.1 X10*3/uL (0.0-0.4); Hematocrit 29.5 % (37.0-47.0); Hemoglobin 9.8 g/dl (12.0-16.0); Imm Gran Abs Auto 0.02 X10*3/uL (0.00-0.03); Imm Gran Pct Auto 0.3 % (0.0-0.4); Lymphocytes Absolute Auto 1.2 X10*3/uL (1.2-4.9); Lymphocytes Percent Auto 15.8 % (20-40); Mean Corpuscular HGB Conc 33.2 g/dl (31.0-35.0); Mean Corpuscular Hemoglobin 32.3 pg (27.0-33.0); Mean Corpuscular Volume 97.4 fL (80.0-98.0); Mean Platelet Volume 11.6 fL (9.4-12.3); Monocytes Absolute Auto 0.8 X10*3/uL (0.1-1.2); Monocytes Percent Auto 10.1 % (2-11); Neutrophils Absolute Auto 5.6 x10*3/uL (2.0-8.3); Neutrophils Percent Auto 72.2 % (45-73); Platelet Count 161 X10*3/uL (160-400); Red Blood Count 3.03 X10*6/uL (4.20-5.50); Red Cell Distribution Width 12.7 % (11.0-16.0); White Blood Count 7.7 X10*3/uL (4.8-10.8)
[2023-04-10 06:53] LABS: Anion Gap 13 (12-20); Blood Urea Nitrogen 14 mg/dL (9-16); Calcium 8.8 mg/dL (8.4-10.2); Carbon Dioxide 27 mmol/L (22-29); Chloride 103 mmol/L (96-108); Creatinine Clr Calc Pharmacy 37.8; Estimated Glomerular Filt Rate > 60; Glucose Fasting 114 mg/dL (60-99); Potassium 4.5 mmol/L (3.3-5.1); Sodium 138 mmol/L (135-145)
[2023-04-10 07:17] VITALS: BP 123/60; PULSE 85; RESP 18; TEMP 36.2; O2SAT 95
--- NOTE | 2023-04-10 07:25 | PM.PNORT ---
Subjective Subjective Date of Service: 04/10/23 Interval history: POD1 s/p RTHA. Patient is resting in bed comfortably. No overnight events. No additional complaints. Physical Exam Vital Signs: Vital Signs: Last Vital Signs Temp 97.2 F 04/10/23 07:17 Pulse 85 04/10/23 07:17 Resp 18 04/10/23 07:17 BP 123/60 04/10/23 07:17 Pulse Ox 95 04/10/23 07:17 O2 Del Method Room Air 04/10/23 07:17 O2 Flow Rate 2 04/09/23 14:30 BMI result Body Mass Index 18.4 Const: General: cooperative, healthy appearing and no acute distress Resp: Effort & Inspection: normal respiratory effort and able to speak in complete sentences Cardio: Rate: regular rate Peripheral pulses: Peripheral pulses 2+ throughout GI: Palpation (GI): Soft to palpation Skin: Lesions: no lesions Rashes: no rashes Extrem: Other: Rt hip Aquacel is c/d/i. Able to dorsi/plantarflex. NVI. Procedures Date of Service Date of Service: 04/10/23 Progress Note: A&P Assessment and plan (1) Status post total hip replacement, right: Status: Acute Assessment and Plan: Continue pain mgmnt Begin ASA for dvt ppx begin PT for RTHA Dispo planning-Pending PT eval, pain mgmnt Time Spent With Patient Time: Total time managing care of this patient today ____ minutes. Quality Stroke Does the patient have a stroke diagnosis?: No VTE Prior VTE?: No VTE Risk Level:: Medical - moderate - high VTE Device Contraindication: N/A - Device Ordered VTE Drug Contraindication: N/A - Med Ordered
[2023-04-10 07:31] LABS: Glucose, Whole Blood 117 mg/dL (60-115)
--- NOTE | 2023-04-10 08:22 | W.PM.OPN ---
Operative Note Operative Note Date of Service: 04/09/23 Narrative: Date of Service: 04/09/23 Pre-op diagnosis: Right hip OA Post-op diagnosis: same Procedure: Right MERT Implants: Mccool Trident 2 48 with Accolade2 # 3 127 deg and + 8 MDM Surgeon: Mike Loving MD Anesthesia: GETA and local Was an Double Needle Stitcher used for this Procedure?: Yes Double Needle Stitcher: Mercedes Treadwell Estimated blood loss (mL): 250 IV fluids (mL): 850 Pathology: other Condition: stable Disposition: PACU Procedure in detail: Patient was brought into the operating room and placed in the right lateral decubitus position. All bony prominences were well padded and the limb was prepped and draped in standard sterile fashion. A time-out was called to identify proper site procedure proper surgeon IV antibiotics and 1 g of transaxemic acid were administered. I began by making a curvilinear incision over the posterolateral aspect of the greater trochanter. Dissection was taken down to the tensor fascia which was incised in line with the incision and a Charnley retractor was placed. Cautery was used to maintain hemostasis. The hip was internally rotated and the external rotators were identified. The vessels were cauterized and a full-thickness capsular/external rotator layer was developed starting just proximal to the piriformis. This layer was tagged and a dull Hohmann retractor was placed underneath the neck in the hip was dislocated. A neck cut was made 1 cm proximal to the lesser trochanter and the head and neck were removed. The head was defromed and collapsed and not measurable. I removed labral tissue and cauterized the fovea. I started with a 42 reamer and medialized to the inner table. I sequentially reamed up to a size 48 and impacted a 48mm cup at 45 degrees of inclination and 25 degrees of version. I then placed an MDM liner. I identified the piriformis insertion and used this as a starting point for my gerardo cutter. The medius tendon was protected with a Hibs retractor. A Charnley awl was inserted in the canal and a curved curette used to remove the lateral bone. I irrigated copiously. I then sequentially broached in the patient's natural version to a size 4 but was unable to reduce the hip[ with a + 0 and there is no - for an MDM so I downsized to a 3 and retrialed. She was tight because of chronic shortening but I was able to reduce a +8. Using this I felt the length and stability were excellent. I then placed my final #3/ 127 and, using a trail head I took the hip through range of motion. I was satisfied with the stability.The length was also satisfactory. I placed my final MDM head and the hip reduced. I then irrigated for 3 minutes with iodine and placed 1 g of local transaxemic acid. I performed a capsular closure with 2.0 fiberwire, Angelica's fascia with 0 Vicryl, subcuticular with 2-0 Vicryl and the skin with brunilda. Patient was placed into a sterile dressing. Patient was extubated brought to the recovery room in stable condition. There were no known complications.
[2023-04-10] MEDS: Cyanocobalamin (Vitamin B-12) 1,000 MCG TABLET 1000 MCG PO (08:33)
[2023-04-10] MEDS: metFORMIN HCl 1,000 MG TABLET 1000 MG PO ×2 (08:33→18:22)
[2023-04-10] MEDS: Calcium Carbonate 750 MG TAB.CHEW PO (08:33)
[2023-04-10] MEDS: Docusate Sodium 100 MG CAPSULE PO ×2 (08:33→20:16)
[2023-04-10] MEDS: Multivitamin TABLET 1 TAB PO (08:33)
[2023-04-10] MEDS: Celecoxib 200 MG CAPSULE PO ×2 (08:33→20:16)
[2023-04-10 11:36] LABS: Glucose, Whole Blood 242 mg/dL (60-115)
[2023-04-10] MEDS: Aspirin 325 MG TABLET PO ×2 (11:54→20:16)
--- NOTE | 2023-04-10 13:50 | HO.POSTANES ---
Post Anesthesia Evaluation Post Anesthesia Evaluation Date of Service: 04/10/23 Vital Signs: Vital Signs Temp Pulse Resp BP Pulse Ox O2 Del Method 04/10/23 07:17 97.2 F 85 18 123/60 95 Room Air 04/10/23 03:28 97 F 79 17 115/56 L 96 Room Air Anesthesia: General Mental Status: Awake Pain Control: Satisfactory Nausea/Vomiting: None Hydration: Adequate Anesthesia-Related Issues: No Anes. Related Issues
--- NOTE | 2023-04-10 13:59 | MHC.CM.PN ---
pt lives alone has no pervious serviuces would prefer to go home w/vna vs str referral made to ns
[2023-04-10 14:20] VITALS: BMI 18.4
[2023-04-10 14:59] VITALS: BP 119/56; PULSE 96; RESP 18; TEMP 36.1; O2SAT 95
[2023-04-10 16:16] LABS: Glucose, Whole Blood 166 mg/dL (60-115)
[2023-04-10] MEDS: 0.9 % Sodium Chloride Flush 3 ML SYRINGE IVFLUSH ×2 (17:35→20:17)
[2023-04-10 19:27] VITALS: BP 128/60; PULSE 105; RESP 16; TEMP 37.5; O2SAT 96
[2023-04-10 20:02] VITALS: BMI 18.9
[2023-04-10] MEDS: Atorvastatin Calcium 40 MG TABLET PO (20:17)
[2023-04-10 20:26] LABS: Glucose, Whole Blood 193 mg/dL (60-115)
[2023-04-11 03:39] VITALS: BP 106/56; PULSE 80; RESP 18; TEMP 36.2; O2SAT 93
[2023-04-11 06:30] LABS: MANUAL DIFF FLAG NO
[2023-04-11 06:36] LABS: Basophils Percent Auto 0.5 % (0-2); Eosinophils Absolute Auto 0.3 X10*3/uL (0.0-0.4); Eosinophils Percent Auto 3.9 % (0-4); Hematocrit 28.1 % (37.0-47.0); Hemoglobin 9.4 g/dl (12.0-16.0); Imm Gran Abs Auto 0.02 X10*3/uL (0.00-0.03); Imm Gran Pct Auto 0.2 % (0.0-0.4); Lymphocytes Absolute Auto 1.3 X10*3/uL (1.2-4.9); Lymphocytes Percent Auto 16.7 % (20-40); Mean Corpuscular HGB Conc 33.5 g/dl (31.0-35.0); Mean Corpuscular Hemoglobin 32.1 pg (27.0-33.0); Mean Corpuscular Volume 95.9 fL (80.0-98.0); Mean Platelet Volume 11.2 fL (9.4-12.3); Monocytes Absolute Auto 0.9 X10*3/uL (0.1-1.2); Monocytes Percent Auto 10.7 % (2-11); Neutrophils Absolute Auto 5.4 x10*3/uL (2.0-8.3); Platelet Count 138 X10*3/uL (160-400); Red Blood Count 2.93 X10*6/uL (4.20-5.50); Red Cell Distribution Width 12.9 % (11.0-16.0)
[2023-04-11 06:50] LABS: Anion Gap 10 (12-20); Blood Urea Nitrogen 16 mg/dL (9-16); Calcium 8.6 mg/dL (8.4-10.2); Carbon Dioxide 27 mmol/L (22-29); Chloride 104 mmol/L (96-108); Creatinine Clr Calc Pharmacy 45.2; Estimated Glomerular Filt Rate > 60; Glucose Fasting 110 mg/dL (60-99); Potassium 4.2 mmol/L (3.3-5.1); Sodium 137 mmol/L (135-145)
[2023-04-11 07:34] VITALS: BP 131/60; PULSE 90; RESP 17; TEMP 36.3; O2SAT 94
[2023-04-11 07:51] LABS: Glucose, Whole Blood 120 mg/dL (60-115)
[2023-04-11] MEDS: Celecoxib 200 MG CAPSULE PO (08:23)
[2023-04-11] MEDS: metFORMIN HCl 1,000 MG TABLET 1000 MG PO (08:24)
[2023-04-11] MEDS: Docusate Sodium 100 MG CAPSULE PO (08:24)
[2023-04-11] MEDS: Aspirin 325 MG TABLET PO (08:24)
[2023-04-11] MEDS: Cyanocobalamin (Vitamin B-12) 1,000 MCG TABLET 1000 MCG PO (08:24)
[2023-04-11] MEDS: Calcium Carbonate 750 MG TAB.CHEW PO (08:24)
[2023-04-11] MEDS: oxyCODONE HCl Immed Release 5 MG TABLET PO (08:24)
[2023-04-11] MEDS: Multivitamin TABLET 1 TAB PO (08:24)
[2023-04-11] MEDS: 0.9 % Sodium Chloride Flush 3 ML SYRINGE IVFLUSH (08:26)
--- NOTE | 2023-04-11 09:04 | P.DS_ITS ---
DS: Providers Provider Date of Service: 04/11/23 Date of admission: 04/09/23 09:40 Primary care physician: Fly Flor DO Consults: 04/09/23 15:05 Consult to Hospitalist Routine Comment: Consulting Provider: Hospitalist Reason For Exam: Dm, medical management DS: Diagnosis Discharge Diagnosis (1) Status post total hip replacement, right: Status: Acute DS: Summary Hospital Course Hospital Course: The patient underwent a successful Right total hip arthroplasty on, was transferred to PACU and then to the floor to recover. During their stay, their vitals were stable, afebrile at 97.3 . Labs were unremarkable, H/H 9.4/28.1. POD 1 she was started on ASA 325mg tabs post bid for DVT ppx, they also received Physical Therapy and OT services twice a day. Physical therapy should include gait training, ROM and strength, posterior precautions. WBAT. Prior to discharge, dressing was changed, incision clean dry and intact, new Aquacel dressing applied. The Aquacel dressing should remain intact and dry at all times. Any concerns with the dressing, please contact orthopedic office. No showering. The plan is to be discharged home with VNA Time Spent with Patient Time attestation: Total time managing care of this patient today ____ minutes. Discharge coordination time: Less than 30 minutes Quality: Safe Use of Opioids Does Pt have an Active Cancer Diagnosis on the Problem List?: No Quality: Stroke Does the patient have a stroke diagnosis?: No Physical Exam Vital Signs: Vital Signs: Last Vital Signs Temp 97.3 F 04/11/23 07:34 Pulse 90 04/11/23 07:34 Resp 17 04/11/23 07:34 BP 131/60 04/11/23 07:34 Pulse Ox 94 04/11/23 07:34 O2 Del Method Room Air 04/11/23 07:34 O2 Flow Rate 2 04/09/23 14:30 BMI result Body Mass Index 18.9 Const: General: cooperative, healthy appearing and no acute distress Resp: Effort & Inspection: normal respiratory effort and able to speak in complete sentences Cardio: Rate: regular rate Peripheral pulses: Peripheral pulses 2+ throughout GI: Palpation (GI): Soft to palpation Skin: Lesions: no lesions Rashes: no rashes Extrem: Other: Rt hip Aquacel is c/d/i. Able to dorsi/plantarflex. NVI. DS: Data Data Completed and Pending Pending studies at discharge: Pending at discharge 04/09/23 12:09 Surgical [PTH] Routine Labs on day of discharge: Laboratory Results - last 24 hr 04/10/23 04/10/23 04/10/23 11:26 16:09 20:17 WBC RBC Hgb Hct MCV MCH MCHC RDW Plt Count MPV Immature Gran % (Auto) Neut % (Auto) Lymph % (Auto) Jerome % (Auto) Eos % (Auto) Baso % (Auto) Lymph # (Auto) Jerome # (Auto) Eos # (Auto) Baso # (Auto) Abs Immat Gran (auto) Absolute Neuts (auto) Absolute Nucleated RBC Nucleated RBC % (auto) Sodium Potassium Chloride Carbon Dioxide Anion Gap BUN Creatinine Estim Creat Clear Calc Estimated GFR POC Glucose 242 H 166 H 193 H Fasting Glucose Calcium 04/11/23 04/11/23 04/11/23 05:33 05:33 07:37 WBC 8.0 RBC 2.93 L Hgb 9.4 L Hct 28.1 L MCV 95.9 MCH 32.1 MCHC 33.5 RDW 12.9 Plt Count 138 L MPV 11.2 Immature Gran % (Auto) 0.2 Neut % (Auto) 68.0 Lymph % (Auto) 16.7 L Jerome % (Auto) 10.7 Eos % (Auto) 3.9 Baso % (Auto) 0.5 Lymph # (Auto) 1.3 Jerome # (Auto) 0.9 Eos # (Auto) 0.3 Baso # (Auto) 0.0 Abs Immat Gran (auto) 0.02 Absolute Neuts (auto) 5.4 Absolute Nucleated RBC 0.000 Nucleated RBC % (auto) 0.0 Sodium 137 Potassium 4.2 Chloride 104 Carbon Dioxide 27 Anion Gap 10 L BUN 16 Creatinine 0.66 Estim Creat Clear Calc 45.2 Estimated GFR > 60 POC Glucose 120 H Fasting Glucose 110 H Calcium 8.6 Discharge Plan Discharge Anticipated Discharge Date/Time: 04/11/23 15:08 Patient Disposition: Home Health Service Discharge Diagnosis: s/p RTHA Referrals: Lisa Ocampo PA-C [Physician Occupational Health Manager] - 04/25/23 1:30 pm Discharge Medications: New celecoxib 200 mg Capsule 200 mg PO BID 30 Days Qty: 60 2RF acetaminophen 325 mg Tablet 650 mg PO Q6H PRN (Reason: Pain, Mild (Pain Scale 1-3)) 30 Days Qty: 240 0RF aspirin 325 mg Tablet 325 mg PO BID 42 Days Qty: 84 0RF docusate sodium 100 mg Capsule 100 mg PO BID 14 Days Qty: 28 0RF oxycodone 5 mg Tablet 5 mg PO Q4H PRN (Reason: Pain, Moderate(Pain Scale 4-6)) 7 Days Qty: 42 0RF Rx Instructions: Partial Fill upon patient request. Continued (DME) walker [facility] See Rx Instructions .MEDSUPPLY Qty: 1 0RF Rx Instructions: Folding Front wheeled walker calcium carbonate [Tums] 200 mg calcium (500 mg) Tablet,Chewable 200 mg PO DAILY loratadine [Claritin] 10 mg Tablet 10 mg PO DAILY PRN (Reason: Allergy Symptoms) metformin 1,000 mg tablet 1,000 mg PO BID atorvastatin 40 mg tablet 40 mg PO BEDTIME lisinopril 40 mg tablet 20 mg PO DAILY amlodipine 10 mg tablet 10 mg PO DAILY cyanocobalamin (vitamin B-12) [Vitamin B-12] 1,000 mcg tablet 1,000 mcg PO DAILY multivitamin Tablet 1 tab PO DAILY Discharge Orders: Discharge Order (Routine); Ordered 04/11/23 Ordered By: Mercedes Treadwell Diet: Advance to usual diet Activity on Discharge: Use cane or walker Stand Alone Forms: Patient Portal Discharge page Care Plan Goals: Restore fxn to right hip Health Concerns: None Plan of Treatment: Physical Therapy for total hip arthroplasty: posterior precautions, gait training, ROM, strength Limit stair climbing No showering, no tub bath-keep dressing clean, dry and intact No driving x6 weeks Continue Lovenox tabs once a day x 4 weeks Follow up with [facility] Orthopedics in 2 weeks Assessment: Stable for d/c
--- NOTE | 2023-04-11 09:07 | P.F2F_ITS ---
Service Date Service Date: 04/11/23 Encounter Date of encounter: 04/11/23 Reasons for Services Signs and symptoms assessed: pain with ambulation, weakness, poo balance. Reason for physical therapy: home safety and mobility, therapeutic exercises, restore joint function, gait/transfer training, ADL training and energy conservation Reason for occupational therapy: home safety and mobility, therapeutic exercises, restore joint function, gait/transfer training, ADL training and energy conservation Homebound: Leaving the home is medically contraindicated at this time without the asist of a device and/or another person due th the listed conditions above and below. Reason homebound: unsteady gait / fall risk, pain with ambulation, poor balance / fall risk and unable to drive Homebound supporting statement: Pt. is considered home bound due to recent surgery. Unable to drive, poor balance, poor gait mechanics. Certification: Based on the above findings, I certify that this patient is confined to the home and needs intermittent group home care, physical therapy and/or speech therapy, or continues to need occupational therapy. The patient is under my care, and I have initiated the establishment of the plan of care. The patient will be followed by a physician who will periodically review the plan of care. Time Spent With Patient Time: Total time managing care of this patient today ____ minutes.
--- NOTE | 2023-04-11 09:19 | MHC.CM.PN ---
IMM 04/10/23 Patient is discharged to home today with new [facility]NA. Patient has arranged for transportation home.
== END 2023-04-11 11:13 | disposition home health service (06) | DRG 470 ==
LOC: HO.SSSA 09:42 → HO.S3 13:49
PROVIDERS: Physician Assistant; Admitting Provider Orthopaedic Surgery; PCP Internal Medicine; Visit Provider Orthopaedic Surgery
PROC: 0SR90JA Replacement of Right Hip Joint with Synthetic Substitute, Uncemented, Open Approach (ICD-10-PCS; CPT 27130; principal; 2023-04-09 11:50)
DX: M16.11 Unilateral primary osteoarthritis, right hip (principal); I10 Essential (primary) hypertension; E11.9 Type 2 diabetes mellitus without complications; E78.00 Pure hypercholesterolemia, unspecified; Z87.891 Personal history of nicotine dependence; Z79.82 Long term (current) use of aspirin; Z79.84 Long term (current) use of oral hypoglycemic drugs; Z79.899 Other long term (current) drug therapy
CPT/HCPCS: 27130; 36415; 72170; 80048; 80051; 82565; 82947; 84520; 85025; 86850; 86900; 86901; 87640; 87641; 88304; 88311; 93005; 97110; 97116; 97162; 97166; 97530; 97535; C1776; J0131; J0690; J1100; J1170; J2405; J2795; J3010

== ENCOUNTER → 2023-04-09 09:40 | Outpatient (BNV) | payer MEDICARE, SELFPAY | PROVIDERS: Admitting Provider Orthopaedic Surgery; PCP Internal Medicine; Visit Provider Internal Medicine | DX: M16.11 Unilateral primary osteoarthritis, right hip (principal) | CPT/HCPCS: 99232 ==

== ENCOUNTER 2023-04-25 13:14 | Outpatient (AMB) | payer MEDICARE, SELFPAY ==
--- NOTE | 2023-04-25 13:36 | A.OFFVIS_ITS ---
Intake Vital Signs 04/25/23 13:40 Height 5 ft 2 in Weight 103 lb BMI 18.8 Intake Visit Reasons: PO-RT MERT 04/09/23 NE Intake Note: Kristina an 87 year old female who presents today for a preoperative right MERT on 04/09/23. Patient is using a cane. Patient reports no pain or discomfort just a little ache. Allergies azithromycin [From ZITHROMAX] Allergy (Severe, Verified 04/25/23 13:38) SEVERE GI PAIN/PASSED OUT, syncope HPI PO-RT MERT 04/09/23 NE HPI Details 87-year-old female who presents in the office today 2 weeks status post right total hip arthroplasty, which was performed on 04/09/[address] Loving. The patient reports no pain or discomfort while in the office today. She states she has a little ache. Patient is ambulating with a cane. 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 No surrounding erythema or drainage. No signs of infection. Ita intact. Able to perform full ROM. Patient is ambulating with a cane. Assessment & Plan Assessment & Plan (1) Status post total hip replacement, right: Code(s): Z96.641 - Presence of right artificial hip joint Plan Ms. Lopez is an 87-year-old female who presents in the office today 2 weeks status post right total hip arthroplasty, which was performed on 04/09/[address] Loving. The patient reports no pain or discomfort while in the office today. She states she has a little ache. Patient is ambulating with a cane. [employer] were removed and steri-stripes were applied. The patient will continue to work with physical therapy outpatient. Follow up will be in [address] Loving, or sooner if needed. Orders: Orders PT Evaluation and Treatment Today Z96.641 - Presence of right artificial hip joint Patient Instructions: Scribed for Lisa Ocampo PA-C by Zenia Tijerina biomedical electronics technician, on 04/25/2023 at 1:17 pm, EST. Coding Level of Care Code Global (58655) Diagnoses Status post total hip replacement, right Z96.641
[2023-04-25 13:40] VITALS: BMI 18.8
== END 2023-04-25 14:14 | disposition home or self-care (01) ==
PROVIDERS: Visit Provider Physician Assistant
DX: Z96.641 Presence of right artificial hip joint (principal)
CPT/HCPCS: 99024

== ENCOUNTER → 2023-04-25 13:14 | Outpatient (BNVA) | payer MEDICARE, SELFPAY | PROVIDERS: Visit Provider Physician Assistant | DX: Z96.641 Presence of right artificial hip joint (principal) ==

== ENCOUNTER 2023-05-16 10:00 | Outpatient (RCR) | payer MEDICARE, SELFPAY ==
--- NOTE | 2023-04-25 14:08 | MHC.PT.EP ---
[facility] [place] Office [place] [facility] [place] [facility] [address] Alexis Costa [address] [phone] F: [phone] F: [phone] F: [phone] F: [phone] Physical Therapy Plan of Care Date of Evaluation: Date of Surgery: 04/09/23 Diagnosis: S/P Rt MERT-> POSTERIOR APPROACH Assessment: 87 YO FEMALE REF TO PT S/P Rt POSTERIOR APPROACH MERT ON 04/09/23- SHE RESIDES ALONE IN AN APT W FAMILY AND FRIEND SUPPORT AND IS CURRENTLY AMB W A CANE. OBJECTIVE FINDINGS: LIMITED AROM Rt LE, TIGHT PSOAS MM MARK AND DECR ANKLE DF MARK; DECR STRENGTH IN PROX / LUMBOPELVIC AND Rt LE, MINIMAL POST-OP PAIN IN RIGHT HIP GIRDLE ,AND HEALING LATERAL POSTERIOR Rt HIP INCISION. FUNCTIONALLY, Pt IS AMB W A CANE-> SHE HAS COMPENSATORY GAIT, MODIFIED STAIR MGMT, DECR STANDING DONALD, AND DECR DONALD TO MORE DYNAMIC ADLs . Pt IS A GOOD PT CANDIDATE TO GUIDE HER IN HER POST-OP MERT COURSE, REVIEWING MERT PRECAUTIONS, ADDRESSING THE ABOVE FINDINGS, PAIN MGMT, AND MAXIMIZING FUNCTIONAL INDEPENDENCE. Frequency and Duration: The patient will be seen 2 x WK x 8 WKS Short Term Goals: *Pt INDEP W MERT POSTERIOR APPROACH PRECAUTIONS AND SELF-MGMT OF POST-OP STATUS TO PROMOTE OPTIMAL HEALING *Pt WILL DEMON EFFICIENT GAIT MECHANICS W LEAST RESTRICTIVE ASST DEVICE ON LEVEL GROUND AND STAIRS *Pt'S RIGHT HIP PAIN WILL DECR TO 2-3/10 Assisted Goals: *Pt WILL IMPROVE LUMBOPELVIC/ Rt LE STRENGTH TO AT LEAST 5-/5 *Pt RESUME AT LEAST PLOF EVIDENT W IMPROVED LEFI SCORE *Pt INDEP W PROGR HEP AND SELF-SX MGMT TECHN Treatment Plan: Modalities to reduce pain, spasms and effusion. Manual therapy to restore motion and function. Therapeutic exercise to improve strength and flexibility. Neuromuscular re-education for posture and balance. Therapeutic activities to return to functional activities of daily living. Electronically signed by: NATALIE COTA,PT Please sign and return to therapist. Thank you for your referral.
--- NOTE | 2023-05-20 11:16 | MHC.PT.DC ---
[facility] [place] Office [place] Office [place] Office [address] Alexis Costa [address] [phone] F: [phone] F: [phone] F: [phone] F: [phone] Physical Therapy Discharge Report Diagnosis: S/P Rt MERT-> POSTERIOR APPROACH Date of Surgery: 04/09/23 Date of Evaluation: 04/25/23 Date of Discharge: Treatments to Date: 7 Cancellations to Date: 0 No Shows to Date: 0 Discharge Status: Achieved Goals Improved Function Independent with HEP Patient Elected to Stop Discharge Summary: Patient has come to 7 PT appointments, she feels like she is ready for DC at this time. She is I in her HEP, reports minimal pain and improved functional tolerance and endurance. She follows up with ortho in a week. Requesting DC at this time, she has met her goals and is I in her program. Electronically signed by: Donna Waldron, PT Please sign and return to therapist. Thank you for your referral.
== END 2023-05-20 11:16 | disposition home or self-care (01) ==
LOC: HO.PTCHIC 10:00
PROVIDERS: PCP Internal Medicine; Visit Provider Physician Assistant
DX: Z96.641 Presence of right artificial hip joint (principal)
CPT/HCPCS: 97110; 97112; 97162; 97530

== ENCOUNTER 2023-05-17 07:55 | Outpatient (REF) | payer MEDICARE, SELFPAY ==
[2023-05-17 12:02] LABS: Anion Gap 15 (12-20); Blood Urea Nitrogen 18 mg/dL (9-16); Carbon Dioxide 27 mmol/L (22-29); Chloride 106 mmol/L (96-108); Estimated Glomerular Filt Rate > 60; Glucose Random 92 mg/dL (60-115); Potassium 5.7 mmol/L (3.3-5.1); Sodium 142 mmol/L (135-145)
[2023-05-17 13:00] LABS: Creatinine Urine 110.63 mg/dL; Microalbum/Creatinine Ratio Ur 22.5 ug/mg cr (<30)
== END 2023-05-17 07:56 | disposition home or self-care (01) ==
LOC: HO.HMGCLDS 07:55
PROVIDERS: PCP Internal Medicine; Visit Provider Internal Medicine
DX: E11.9 Type 2 diabetes mellitus without complications (principal)
CPT/HCPCS: 36415; 80048; 82043; 82570

== ENCOUNTER 2023-05-23 08:30 | Outpatient (REF) | payer MEDICARE, SELFPAY ==
--- NOTE | ~2023-05-23 | XR_ITS ---
EXAMINATION: XR PELVIS CLINICAL INFORMATION: Pain. COMPARISON: Most recent pelvic radiograph dated 04/09/2023. TECHNIQUE: AP view of the pelvis. FINDINGS: Right hip arthroplasty in unchanged anatomic alignment. No hardware fracture. No perihardware lucency to suggest loosening or infection. No evidence of asymmetric wear. No acute osseous fracture. No dislocation. Mild left hip joint space narrowing with small marginal osteophytes, unchanged. No concerning lytic or blastic osseous lesion. Atherosclerotic calcifications. XR/XR pelvis 1-2V IMPRESSION: Right hip arthroplasty without evidence of complication. Mild left hip osteoarthritis, unchanged.
== END 2023-05-23 08:31 | disposition home or self-care (01) ==
LOC: HO.HOSX 08:30
PROVIDERS: Visit Provider Orthopaedic Surgery
DX: M25.551 Pain in right hip (principal); Z47.1 Aftercare following joint replacement surgery; Z96.641 Presence of right artificial hip joint
CPT/HCPCS: 72170

== ENCOUNTER 2023-05-23 10:40 | Outpatient (AMB) | payer MEDICARE, SELFPAY ==
--- NOTE | 2023-05-23 10:12 | A.OFFVIS_ITS ---
Intake Intake Visit Reasons: PO-RT MERT 04/09/23 NE Intake Note: Kristina is an 87 year old female who presents today for a post operative appointment s/p Right MERT 04/09/23. Allergies azithromycin [From ZITHROMAX] Allergy (Severe, Verified 04/25/23 13:38) SEVERE GI PAIN/PASSED OUT, syncope HPI PO-RT MERT 04/09/23 NE HPI Details Kristina is an 87 year old woman ~6 weeks S/P right MERT. She says she is doing well. She continues to walk with a cane and has been attending PT. [facility] Medical History Diabetes High blood pressure High cholesterol Osteoarthritis of right hip Seasonal allergies Surgical History Hx of breast biopsy Hx of colonoscopy Social History Household Members: None Housing: House Are you a primary animal care service worker to a significant other at home: No Do you presently have visiting nurse or other home services: No Patient Tobacco Use Status: Former Tobacco user Quit Date: 20 years ago Tobacco use type: Cigarette Years Smoked: 25 e-Cigarette/Vaping Use: Never Used Second Hand Smoke Exposure: No service: No Current occupational status: retired 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 Review of Systems Const All systems reviewed & are unremarkable except as noted in HPI and below Physical Exam Const General: no acute distress, alert and awake Orientation/consciousness: patient oriented x3 HEENT Head: Yes normocephalic and Yes atraumatic Eyes EOM: EOMs intact bilaterally Resp Effort & Inspection: normal respiratory effort and able to speak in complete sen tences Cardio Jugular venous distension: no JVD Skin General skin exam: turgor normal Rashes: no rashes Neuro General: patient oriented x3 Extrem Other: Right Hip: inc c/d/i walking comfortably without cane Psych Appearance: grossly normal Affect: normal affect Attitude: cooperative Results Reviewed Results Reviewed: I personally reviewed relevant radiographs. Right total hip arthroplasty in expected post operative position with no hardware complications or evidence of loosening Assessment & Plan Assessment & Plan (1) Status post total hip replacement, right: Code(s): Z96.641 - Presence of right artificial hip joint Plan: This is an 87 year old woman S/P right MERT, DOS: 04/09/23. She says she is doing well and has been attending PT. She continues to ambulate with a cane but says she feels good following her surgery. I recommend she continue to work with PT and remain active as tolerated. She daljit follow up in 6 weeks. Discussed dental prophylaxis and posterior hip precautions. Orders: Orders XR pelvis 1-2V Today M25.559 - Pain in unspecified hip Coding Level of Care Code Global (54407) Diagnoses Status post total hip replacement, right Z96.641
== END 2023-05-23 11:16 | disposition home or self-care (01) ==
PROVIDERS: PCP Internal Medicine; Visit Provider Orthopaedic Surgery
DX: Z96.641 Presence of right artificial hip joint (principal)
CPT/HCPCS: 99024

== ENCOUNTER 2023-06-24 09:38 | Outpatient (REF) | payer MEDICARE, SELFPAY ==
[2023-06-24 10:14] LABS: MANUAL DIFF FLAG NO
[2023-06-24 10:48] LABS: Basophils Absolute Auto 0.1 X10*3/uL (0.0-0.2); Basophils Percent Auto 1.9 % (0-2); Eosinophils Absolute Auto 0.5 X10*3/uL (0.0-0.4); Eosinophils Percent Auto 7.7 % (0-4); Hematocrit 36.1 % (37.0-47.0); Hemoglobin 11.4 g/dl (12.0-16.0); Imm Gran Abs Auto 0.02 X10*3/uL (0.00-0.03); Imm Gran Pct Auto 0.3 % (0.0-0.4); Lymphocytes Absolute Auto 1.7 X10*3/uL (1.2-4.9); Lymphocytes Percent Auto 27.9 % (20-40); Mean Corpuscular HGB Conc 31.6 g/dl (31.0-35.0); Mean Corpuscular Hemoglobin 28.7 pg (27.0-33.0); Mean Corpuscular Volume 90.9 fL (80.0-98.0); Mean Platelet Volume 10.6 fL (9.4-12.3); Monocytes Absolute Auto 0.6 X10*3/uL (0.1-1.2); Monocytes Percent Auto 9.8 % (2-11); Neutrophils Absolute Auto 3.1 x10*3/uL (2.0-8.3); Neutrophils Percent Auto 52.4 % (45-73); Platelet Count 275 X10*3/uL (160-400); Red Blood Count 3.97 X10*6/uL (4.20-5.50); Red Cell Distribution Width 13.6 % (11.0-16.0); White Blood Count 5.9 X10*3/uL (4.8-10.8)
[2023-06-24 11:30] LABS: Alanine Aminotransferase 17 U/L (0-31); Albumin Level 4.4 g/dL (3.5-5.0); Alkaline Phosphatase 111 U/L (39-117); Anion Gap 16 (12-20); Aspartate Amino Transferase 19 U/L (5-31); Blood Urea Nitrogen 17 mg/dL (9-16); Calcium 10.3 mg/dL (8.4-10.2); Carbon Dioxide 26 mmol/L (22-29); Chloride 106 mmol/L (96-108); Cholesterol 118 mg/dL (<200); Estimated Glomerular Filt Rate > 60; Glucose Fasting 107 mg/dL (60-99); HDL Cholesterol 63 mg/dL (>40); LDL Cholesterol Calculated 39 mg/dL (<100); Potassium 5.4 mmol/L (3.3-5.1); Sodium 143 mmol/L (135-145); Total Protein 7.8 g/dL (6.5-8.0); Triglycerides 82 mg/dL (<150)
== END 2023-06-24 09:39 | disposition home or self-care (01) ==
LOC: HO.LAB 09:38
PROVIDERS: PCP Internal Medicine; Visit Provider Internal Medicine
DX: I10 Essential (primary) hypertension (principal)
CPT/HCPCS: 36415; 80053; 80061; 85025

== ENCOUNTER 2023-07-08 14:05 | Outpatient (AMB) | payer MEDICARE, SELFPAY ==
--- NOTE | 2023-07-08 14:12 | A.OFFVIS_ITS ---
Intake Vital Signs 07/08/23 14:13 Height 5 ft 2 in Weight 103 lb BMI 18.8 Intake Visit Reasons: PO RT MERT 04/09/23 NE Intake Note: Kristina is am 87 year old female who presents today for a post operative appointment s/p Right MERT 04/09/23. Patient report that she is doing well with no concerns. Allergies azithromycin [From ZITHROMAX] Allergy (Severe, Verified 07/08/23 14:12) SEVERE GI PAIN/PASSED OUT, syncope HPI PO RT MERT 04/09/23 NE HPI Details Kristina is an 87 year old woman ~3 months S/P right MERT. She says she is doing well. She has completed her course of PT and has no complaints today. [facility] Medical History Diabetes High blood pressure High cholesterol Osteoarthritis of right hip Seasonal allergies Surgical History Hx of breast biopsy Hx of colonoscopy Social History Household Members: None Housing: House Are you a primary managed care provider to a significant other at home: No Do you presently have visiting nurse or other home services: No Patient Tobacco Use Status: Former Tobacco user Quit Date: 20 years ago Tobacco use type: Cigarette Years Smoked: 25 e-Cigarette/Vaping Use: Never Used Second Hand Smoke Exposure: No service: No Current occupational status: retired 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 Review of Systems Const All systems reviewed & are unremarkable except as noted in HPI and below Physical Exam Vital Signs: BMI result Body Mass Index 18.8 Const General: no acute distress, alert and awake Orientation/consciousness: patient oriented x3 HEENT Head: Yes normocephalic and Yes atraumatic Eyes EOM: EOMs intact bilaterally Resp Effort & Inspection: normal respiratory effort and able to speak in complete sentences Cardio Jugular venous distension: no JVD Skin General skin exam: turgor normal Rashes: no rashes Neuro General: patient oriented x3 Extrem Other: Right Hip: inc c/d/i walking comfortably without cane Psych Appearance: grossly normal Affect: normal affect Attitude: cooperative Results Reviewed Results Reviewed: I personally reviewed relevant radiographs. Right total hip arthroplasty in expected post operative position with no hardware complications or evidence of loosening Assessment & Plan Assessment & Plan (1) Status post total hip replacement, right: Code(s): Z96.641 - Presence of right artificial hip joint Plan: This is an 87 year old woman S/P right MERT, DOS: 04/09/23. She is doing well and has completed her course of PT. She has [ ]. I recommend she continue to remain active as tolerated. She will follow up prn. Discussed dental prophylaxis and posterior hip precautions. Plan Scribed for Mike Loving MD by Odlel Lynne, biomedical engineering supervisor, on 07/08/23 at 2:40 PM, EST. Coding Level of Care Code Global (95851) Diagnoses Status post total hip replacement, right Z96.641
[2023-07-08 14:13] VITALS: BMI 18.8
== END 2023-07-08 15:02 | disposition home or self-care (01) ==
PROVIDERS: PCP Internal Medicine; Visit Provider Orthopaedic Surgery
DX: Z96.641 Presence of right artificial hip joint (principal)
CPT/HCPCS: 99024

== ENCOUNTER → 2023-07-08 14:05 | Outpatient (BNVA) | payer MEDICARE, SELFPAY | PROVIDERS: PCP Internal Medicine; Visit Provider Orthopaedic Surgery ==

== ENCOUNTER 2023-12-13 08:52 | Outpatient (REF) | payer MEDICARE, SELFPAY ==
--- NOTE | ~2023-12-13 | MM_ITS ---
EXAMINATION: MM SCREENING DIGITAL BREAST TOMOSYNTHESIS, BILATERAL CLINICAL INFORMATION: Screening. Asymptomatic. 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 COMPARISON: Mammography: This study is compared with prior exams dating back to 2019. TECHNIQUE: Digital breast tomosynthesis is performed in both the craniocaudal and mediolateral oblique views along with computer-aided detection (CAD). Synthesized 2D images are generated from the tomosynthesis. FINDINGS: There are scattered areas of fibroglandular density (ACR BI-RADS breast composition Category b). There are no significant masses, abnormal calcifications, or other abnormalities. There are bilateral benign calcifications scattered throughout each breast. There is a biopsy tissue marker which is contiguous with a small, oval, mammographically benign, unchanged mass at the lower inner quadrant of the left breast. MM/MM tomosynthesis screening BI IMPRESSION: No mammographic evidence of malignancy. ASSESSMENT: BI-RADS BI-RADS 2 - Benign Findings RECOMMENDATION: Routine annual mammography screening. 1 year F/U This examination should not preclude the clinical evaluation of a suspicious palpable abnormality. This patient's information was entered into a reminder system with a target due date for their next mammogram.
== END 2023-12-13 08:53 | disposition home or self-care (01) ==
LOC: HO.MAMMO 08:52
PROVIDERS: PCP Internal Medicine; Visit Provider Internal Medicine
DX: Z12.31 Encounter for screening mammogram for malignant neoplasm of breast (principal)
CPT/HCPCS: 77063; 77067

== ENCOUNTER → 2023-12-13 09:15 | Outpatient (BNV) | payer MEDICARE, SELFPAY | PROVIDERS: PCP Internal Medicine; Visit Provider Radiology Diagnostic Radiology | DX: Z12.31 Encounter for screening mammogram for malignant neoplasm of breast (principal) | CPT/HCPCS: 77063; 77067 ==

== ENCOUNTER 2024-05-07 10:14 | Outpatient (REF) | payer MEDICARE, SELFPAY ==
[2024-05-07 13:28] LABS: MANUAL DIFF FLAG NO
[2024-05-07 13:42] LABS: Basophils Absolute Auto 0.1 X10*3/uL (0.0-0.2); Basophils Percent Auto 1.2 % (0-2); Eosinophils Absolute Auto 0.5 X10*3/uL (0.0-0.4); Hematocrit 34.5 % (37.0-47.0); Hemoglobin 11.1 g/dl (12.0-16.0); Imm Gran Abs Auto 0.01 X10*3/uL (0.00-0.03); Imm Gran Pct Auto 0.1 % (0.0-0.4); Lymphocytes Absolute Auto 1.7 X10*3/uL (1.2-4.9); Lymphocytes Percent Auto 24.4 % (20-40); Mean Corpuscular HGB Conc 32.2 g/dl (31.0-35.0); Mean Corpuscular Hemoglobin 28.4 pg (27.0-33.0); Mean Corpuscular Volume 88.2 fL (80.0-98.0); Mean Platelet Volume 11.6 fL (9.4-12.3); Monocytes Absolute Auto 0.6 X10*3/uL (0.1-1.2); Monocytes Percent Auto 8.6 % (2-11); Neutrophils Percent Auto 58.7 % (45-73); Platelet Count 222 X10*3/uL (160-400); Red Blood Count 3.91 X10*6/uL (4.20-5.50); Red Cell Distribution Width 15.4 % (11.0-16.0); White Blood Count 6.9 X10*3/uL (4.8-10.8)
[2024-05-07 13:55] LABS: Estimated Average Glucose 120 mg/dL; Hemoglobin A1c % 5.8 % (<6.0)
[2024-05-07 14:06] LABS: Microalbum/Creatinine Ratio Ur 63.2 ug/mg cr (<30)
[2024-05-07 14:13] LABS: Alanine Aminotransferase 16 U/L (0-31); Albumin Level 4.2 g/dL (3.5-5.0); Alkaline Phosphatase 71 U/L (39-117); Anion Gap 14 (12-20); Aspartate Amino Transferase 20 U/L (5-31); Bilirubin Total 1.2 mg/dL (0.0-1.0); Blood Urea Nitrogen 15 mg/dL (9-16); Calcium 9.6 mg/dL (8.4-10.2); Carbon Dioxide 25 mmol/L (22-29); Chloride 108 mmol/L (96-108); Estimated Glomerular Filt Rate > 60; Ferritin 16 ng/mL (10-250); Glucose Fasting 93 mg/dL (60-99); Iron 47 mcg/dL (30-160); Percent Iron Saturation 22 % (15-50); Sodium 143 mmol/L (135-145); Total Iron Binding Capacity 214 mcg/dL (228-428); Total Protein 7.1 g/dL (6.5-8.0); Unsaturated Iron Binding 167 ug/dL
[2024-05-07 14:31] LABS: Folate 15.6 ng/mL (> or = 4.0); Vitamin B12 1206 pg/mL (200-900)
== END 2024-05-07 10:15 | disposition home or self-care (01) ==
LOC: HO.HMGCLDS 10:14
PROVIDERS: PCP Internal Medicine; Visit Provider Internal Medicine
DX: E11.9 Type 2 diabetes mellitus without complications (principal); I10 Essential (primary) hypertension; E78.00 Pure hypercholesterolemia, unspecified; E53.8 Deficiency of other specified B group vitamins; E83.119 Hemochromatosis, unspecified
CPT/HCPCS: 36415; 80053; 82043; 82570; 82607; 82728; 82746; 83036; 83540; 85025

== ENCOUNTER 2024-07-15 07:59 | Outpatient (REF) | payer MEDICARE, SELFPAY ==
[2024-07-15 11:30] LABS: Alanine Aminotransferase 16 U/L (0-31); Albumin Level 4.2 g/dL (3.5-5.0); Alkaline Phosphatase 63 U/L (39-117); Anion Gap 14 (12-20); Aspartate Amino Transferase 23 U/L (5-31); Bilirubin Total 1.1 mg/dL (0.0-1.0); Blood Urea Nitrogen 16 mg/dL (9-16); Calcium 9.5 mg/dL (8.4-10.2); Carbon Dioxide 26 mmol/L (22-29); Chloride 106 mmol/L (96-108); Estimated Glomerular Filt Rate > 60; Glucose Random 103 mg/dL (60-115); Potassium 3.6 mmol/L (3.3-5.1); Sodium 142 mmol/L (135-145); Total Protein 7.1 g/dL (6.5-8.0)
[2024-07-15 11:51] LABS: Creatinine Urine 67.75 mg/dL; Microalbum/Creatinine Ratio Ur 233.2 ug/mg cr (<30)
== END 2024-07-15 08:00 | disposition home or self-care (01) ==
LOC: HO.HMGCLDS 07:59
PROVIDERS: PCP Internal Medicine; Visit Provider Internal Medicine
DX: I10 Essential (primary) hypertension (principal)
CPT/HCPCS: 36415; 80053; 82043; 82570

== ENCOUNTER 2024-10-21 09:33 | Outpatient (AMB) | payer MEDICARE, SELFPAY ==
--- NOTE | 2024-10-21 09:35 | A.OFFPC_ITS ---
Vital Signs 10/21/24 09:47 Height 4 ft 11 in Weight 104 lb BMI 21.0 BP 160/80 H Blood Pressure Location Rt brachial Pulse 67 Pulse Source Pulse Oximeter Temp 97.0 F Pulse Oximetry (%) 97 Intake Visit Reasons: 3 month follow up Intake Note: no other issues Allergies azithromycin [From ZITHROMAX] Allergy (Severe, Verified 10/21/24 12:09) SEVERE GI PAIN/PASSED OUT, syncope Medication List - Last Reconciled 10/21/24 by Maggi Adams PA-C acetaminophen 650 mg (2 x 325 mg) PO Q6H PRN 30 days atorvastatin 40 mg PO BEDTIME calcium carbonate (Tums) 200 mg PO DAILY cyanocobalamin (vitamin B-12) (Vitamin B-12) 1,000 mcg PO DAILY lisinopril 40 mg PO DAILY 90 days loratadine (Claritin) 10 mg PO DAILY PRN metformin 1,000 mg PO BID multivitamin 1 tab PO DAILY walker Folding Front wheeled walker [facility] Medical History (Updated 10/21/24 @ 10:07 by Maggi Adams PA-C) History of mammogram (~12/13/23) Fibrocystic breast disease Vitamin B12 deficiency Hemochromatosis Diabetes type 2 Hyperlipidemia Seasonal allergies Osteoarthritis of right hip High cholesterol High blood pressure Diabetes Surgical History (Updated 10/21/24 @ 10:07 by Maggi Adams PA-C) Hx of breast biopsy Hx of colonoscopy (~2011) Social History Household Members: None Housing: House Are you a primary health care facilities inspector to a significant other at home: No Do you presently have visiting nurse or other home services: No Patient Tobacco Use Status: Former Tobacco user Tobacco use type: Cigarette Years Smoked: 25 e-Cigarette/Vaping Use: Never Used Second Hand Smoke Exposure: No service: No Current occupational status: retired 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 BMI result Body Mass Index 21.0 Normal BMI. Tobacco/Smoking Status: Tobacco use Status Patient Tobacco Use Status Former Tobacco user 10/21/24 09:37 Tobacco use type Cigarette 10/21/24 09:37 e-Cigarette/Vaping Use Never Used 10/21/24 09:37 Thrive Assessment: Date of Thrive Assessment Date Thrive assessed 04/10/23 10/21/24 09:37 Coding Level of Care Code New Pt Level 4 (40693) Complex EM visit Add On G2211 Diagnoses Hyperlipidemia E78.5 Diabetes type 2 E11.9 Hemochromatosis E83.119 Vitamin B12 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 Fibrocystic breast disease N60.19 Assessment & Plan Assessment & Plan (1) Hyperlipidemia: Code(s): E78.5 - Hyperlipidemia, unspecified Category: Medical Plan: Patient to continue atorvastatin 40 mg at bedtime. Last LDL was 06/24/2023 which was 39. Will reassess adding labs at this time for patient to go fasting. Condition is chronic and stable will continue to monitor. (2) Diabetes type 2: Code(s): E11.9 - Type 2 diabetes mellitus without complications Category: Medical Plan: Patient to continue metformin 1000 mg p.o. b.i.d.. Condition is chronic and stable continue to monitor. (3) Hemochromatosis: Code(s): E83.119 - Hemochromatosis, unspecified Category: Medical Plan: Condition is chronic and stable continue to monitor. (4) Vitamin B12 deficiency: Code(s): E53.8 - Deficiency of other specified B group vitamins Category: Medical Plan: Patient to continue vitamin B supplement 1000 mcg daily. Will reassess on labs. Condition is chronic and stable continue to monitor. (5) Fibrocystic breast disease: Code(s): N60.19 - Diffuse cystic mastopathy of unspecified breast Category: Medical Plan: Condition is chronic and stable continue to monitor. Plan Plan - Increase lisinopril to 40 mg for hypertension management, given elevated blood pressure. - Continue current diabetes management with metformin; monitor blood glucose levels. - Conduct follow-up blood work to evaluate liver enzymes, levels, and complete metabolic panel. - Discuss lifestyle and dietary measures to support cholesterol management. - Schedule a follow-up appointment in one month to monitor blood pressure and review any new lab results. - Arrange for annual screening tests if due. Orders: Orders Complete Blood Count Auto Diff Today Z00.00 - Encounter for general adult medical examination without abnormal findings C Reactive Protein Today Z00.00 - Encounter for general adult medical examination without abnormal findings Lipid Panel Today Z00.00 - Encounter for general adult medical examination without abnormal findings Vitamin B1 Today Z00.00 - Encounter for general adult medical examination without abnormal findings Vitamin D 25-OH Total Today Z00.00 - Encounter for general adult medical examination without abnormal findings TSH reflex Free T4 Today Z00.00 - Encounter for general adult medical examination without abnormal findings Comprehensive Revloc. Panel Fast Today Z00.00 - Encounter for general adult medical examination without abnormal findings Hemoglobin A1c Today Z00.00 - Encounter for general adult medical examination without abnormal findings Liver Panel Today Z00.00 - Encounter for general adult medical examination without abnormal findings Magnesium Today Z00.00 - Encounter for general adult medical examination without abnormal findings Vitamin B12 and Folate Today Z00.00 - Encounter for general adult medical examination without abnormal findings Medications: Changed From lisinopril 40 mg PO DAILY To lisinopril 40 mg PO DAILY 90 days 90 tabs 1RF Refilled lisinopril 40 mg PO DAILY 90 days 90 tabs 1RF Patient Instructions: Patient Instructions - Increase lisinopril dosage to 40 mg daily. - Continue taking metformin as prescribed. - Arrange to have blood work done for your liver enzymes and vitamin levels. - Check your blood pressure at least two to three times a week. - Maintain your current lifestyle and dietary habits to support cholesterol management. - Return for a follow-up appointment in one month or sooner if any concerns arise. Scribe Plan - Not visible on output: History of Present Illness The patient is an 88-year-old female presenting for a three-month follow-up regarding her chronic medical conditions, including Type 2 diabetes mellitus, essential hypertension, hyperlipidemia, and vitamin B12 deficiency. She reports managing her diabetes with metformin 1000 mg twice daily. She has had changes in her blood pressure medication regimen recently; previously on lisinopril 40 mg daily, it was reduced to 20 mg, and now adjusted back to 40 mg due to elevated blood pressure readings up to 160 mmHg. She is on rosuvastatin for cholesterol m anagement and takes vitamin B12 supplements due to her deficiency. The patient has a history of fibrocystic breast changes, left clavicle fracture, and hemochromatosis. She also experiences occasional itching and rashes due to seasonal allergies. She recalls hip replacement surgery and previous left clavicle fracture without recent incidents or injuries. No current complaints of pain or functional impairments are noted. Social History - The patient lives independently and manages her daily living activities without assistance. - She maintains the ability to drive, including nighttime driving, and conducts personal errands such as grocery shopping. 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 - The patient has three grown children who reside locally. - Engages in regular annual mammograms. Review of Systems - Constitutional: Denies weight loss or fatigue. - Musculoskeletal: Denies joint pain or swelling. - Respiratory: Denies shortness of breath or wheezing. - Cardiovascular: Denies chest pain or palpitations. - Gastrointestinal: Reports normal bowel movements; denies abdominal pain or changes in urination. - Neurological: Denies dizziness or syncope. - Dermatological: Reports occasional skin rashes due to allergies. - Allergies: Reports seasonal allergic symptoms. Physical Exam Appearance: Alert. Oriented X3. No acute distress. Head: Normal external exam. Normocephalic. Atraumatic. Eyes: Pupils are equal, round, and reactive to light. Extraocular movements intact. Conjunctiva and sclera normal. Eyelids normal. Ears: External auditory canal normal. Tympanic membranes normal. Throat: Pharynx normal. Uvula midline. Moist mucous membranes. Neck: Normal inspection. Neck supple. Full range of motion. No adenopathy. Thyroid Normal. No meningeal signs. No neck mass noted. Cardiovascular: Normal heart rate and rhythm. Heart sound normal. No murmurs noted. Pulses normal throughout. Respiratory: No respiratory distress. Painless inspiration. Breath sounds normal. No wheezes/rales/rhonchi noted. Chest nontender. No accessory muscle usage noted or decreased air movement noted. Abdomen: Soft and nontender. Bowel sounds normal in all 4 quadrants. No distention noted. No organomegaly noted. No visible injury noted. Back: No costovertebral angle tenderness. Full range of motion noted. Skin: Skin warm and dry. Normal skin color. Normal skin turgor. Occasional itching and skin rashes noted due to seasonal allergies. Extremities: No lower extremity edema. Extremities exhibit normal range of motion. Extremities nontender. Neuro: Oriented X 3. No motor deficit. No sensory deficit. Reflexes normal. Results - Labs: Previous blood work showed slightly elevated bilirubin, normal folate; vitamin B12 level was high at 1200; iron level elevated consistent with hemochromatosis. Plan - Increase lisinopril to 40 mg for hypertension management, given elevated blood pressure. - Continue current diabetes management with metformin; monitor blood glucose levels. - Conduct follow-up blood work to evaluate liver enzymes, levels, and complete metabolic panel. - Discuss lifestyle and dietary measures to support cholesterol management. - Schedule a follow-up appointment in one month to monitor blood pressure and review any new lab results. - Arrange for annual screening tests if due. Patient was informed and verbally consented to the use of an ambient scribe for clinic note documentation during this visit. Discussion Notes I discussed with the patient the need to increase her lisinopril dosage to 40 mg daily to address her elevated blood pressure, acknowledging her previous experience at this dosage. The benefits of controlling blood pressure were discussed, and potential side effects, including hypotension, were addressed. The importance of monitoring blood pressure regularly at home was emphasized. We reviewed her diabetes management with metformin and confirmed its current effectiveness. I recommended follow-up laboratory tests to assess her renal function, liver enzymes, and fasting glucose levels. The patient agreed to comply with the alterations in her medication regimen and to undertake the necessary tests. We discussed the need for continued management of her hyperlipidemia and maintenance of her annual screening routine. Patient Instructions - Increase lisinopril dosage to 40 mg daily. - Continue taking metformin as prescribed. - Arrange to have blood work done for your liver enzymes and vitamin levels. - Check your blood pressure at least two to three times a week. - Maintain your current lifestyle and dietary habits to support cholesterol management. - Return for a follow-up appointment in one month or sooner if any concerns arise.
[2024-10-21 09:47] VITALS: BP 160/80; PULSE 67; TEMP 36.1; O2SAT 97; BMI 21.0
--- OUTSIDE RECORDS SUMMARY | 2024-10-21 09:50 | XMS_ITS | Clinical Summary ---
Author Organization [facility] [address] [place] [address] Phone Care Team Providers Care Industrial Gas Servicer Helper Name Role Phone Fly Flor DO Primary Care Provider Social History Tobacco Use Types Packs/Day Years Used Date Smoking Tobacco: Never Assessed Comments Unknown Sex and Gender Information Value Date Recorded Sex Assigned at Not on file Legal Sex Female 2:55 PM EST Gender Identity Not on file Sexual Orientation Not on file Plan of Treatment Upcoming Encounters Date Type Department Care Team ([facility] st Contact Info) Description 11/26/2024 4:15 PM EDT Office Visit [facility] [address] [place] [address] Fito Orellana MD [address] [facility] [address] [place] [phone] Health Maintenance Due Date Last Done Comments Pneumococcal Vaccine: 65+ Ye ars (1 of 1 - PCV) 2001 Influenza Vaccine (#1) 2024 Diabetes: Hemoglobin A1C 07/22/2024 Diabetes: Ophthalmology Exam 07/22/2024 Diabetes: Pedal Pulse Checked 07/22/2024 Diabetes: Sensory Foot Exam 07/22/2024 Diabetes: Visual Foot Exam 07/22/2024 Hepatitis B Vaccine Aged Out No longe r eligible based on patient's age to complete this topic Insurance [facility] PPO BLUE([id number]) Care Teams Industrial Gas Servicer Helper Relationship Specialty Start Date End Date Fly Flor DO [address] [place], [place] [address] PCP - General Internal Medicine 07/22/24
--- OUTSIDE RECORDS SUMMARY | 2024-10-21 09:51 | XMS_ITS ---
Author Organization Fly Flor DO, FACP Address [address] [place], [place] [id number] Care Team Providers Care Streetcar Conductor Name Role Phone BasiaFly Primary Care Provider REASON FOR VISIT 3 month f/u Encounters Encounter Location Date Provider Diagnosis Fly Flor DO, FACP [address] [place], [place] [phone] 10/21/2024 Fly Flor PLAN OF TREATMENT No Information
--- OUTSIDE RECORDS SUMMARY | 2024-10-21 09:51 | XMS_ITS ---
Author Organization Fly Flor DO, FACP Address [address] [facility] [place] [id number] Care Team Providers Care Cupola Charger Insulation Name Role Phone Fly Flor Primary Care Provider ALLERGIES Allergen (clinical drug ingredient) Drug/Non Drug Allergy documented on EMR Reaction Allergy Type Onset Date Status Azithromycin abdominal pain and cramping Drug Allergy Active REASON FOR REFERRAL Reason Rising urine microal bumin to creatinine ratio Diagnosis 1 Type 2 diabetes alla itus without complication (E11.9) Referral Organization Fly Vasquez, FACP Referring Provider First Name Fly Referring Provider Last Name Basia Referring Provider Speciality Internal M edicine Referred Provider Shayan Padilla Referred Provider Specialty Nephrology General Notes Shanelle Piedra 10:49:01 AM EST > Referral and notes faxed prior to scheduling. Referral Priority Routine Referral Appointment Date 08/06/2024 REASON FOR VISIT 2 month f/u, Follow up type II diabetes mellitus MEDICATIONS Medication SIG (Take, Route, Frequency, Duration) Notes Start Date End Date Status Multivitamins 1 tablet Orally Once a day Active Atorvastatin Calcium 40 MG 1 tablet Oral ly Once a day Active Lisinopril 40 MG 1 tablet Orally Once a day Active Vitamin B-12 1000 MCG 1 tablet Orally On ce a day Active Tums 500 MG 2 tablets Orally Onc e a day Active metFORMIN HCl 1000 MG 1 tablet with a me al Orally Twice a day Active SOCIAL HISTORY Tobacco Use: Social History Observation Description Date Details (start date - stop date) Former Smoker NA - NA Sex Assigned At : Social History Observation Description Sex Assigned At Unknown Tobacco Use/Smoking Question Answer Notes Patient is a former smoker How long has it been since y ou last smoked? > 10 years Additional Findings: Tobacco Non-User Fo rmer smoker, currently using no form of tobacco Alcohol Screen Question Answer Notes Did you have a drink contain ing alcohol in the past year? Yes How often did you have a dri nk containing alcohol in the past year? Monthly or less (1 point) How many drinks did you have on a typical day when you were drinking in the past year? 1 or 2 drinks (0 point) How often did you have 6 or more drinks on one occasion in the past year? Never (0 point) Points 1 Interpretation Negative VITAL SIGNS Height 61 in 07/20/2024 Encounters Encounter Location Date Provider Diagnosis Fly Flor DO, [address] [phone] 07/20/2024 Fyl Flor Type 2 diabetes alla itus without complication E11.9 ; Essential hypertension I10 ; Hypercholesterolemia E78.00 and 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 ASSESSMENTS Encounter Date Diagnosis Assessment Notes Treatment Notes Treatment Clinical Notes 07/20/2024 Type 2 diabetes alla itus without complication (ICD-10 - E11.9) 07/20/2024 Essential hypertensi on (ICD-10 - I10) Is taking lisinopril 07/20/2024 Hypercholesterolemia (ICD-10 - E78.00) 07/20/2024 Vitamin B 12 deficie ncy (ICD-10 - E53.8) PLAN OF TREATMENT Medication Medication Name Sig Start Date Stop Date Notes Multivitamins 1 tablet Orally Once a day Atorvastatin Calcium 40 MG 1 tablet Orally Once a day Lisinopril 40 MG 1 tablet Orally Once a day Vitamin B-12 1000 MCG 1 tablet Orally Once a day Tums 500 MG 2 tablets Orally Once a day metFORMIN HCl 1000 MG 1 tablet with a me al Orally Twice a day Treatment Notes Assessment Notes Essential hypertension Is taking lisinop ril Referrals Referral Date Details 08/06/2024 08/06/2024, Rising u rine microalbumin to creatinine ratio, Shayan Palencia Appt Details Follow Up: 3 Months, Reason: follow up visit Progress Notes * Examination Category Sub-Category Detail Notes General Examination PSYCH: alert, orien maxx, cognitive function intact History and Physical Notes * HPI (History of Present Illness) Category Sub-Category Detail Notes New symptom(s) Telehealth Location of provider:: Pro foxr's home address Location of patient:: Address listed in demographics for today's visit Patient identification confirmed using:: Name, Telehealth method:: Telephone only. Julissa ent not visible to care provider. Consent:: Patient verbally c onsented to treatment, Patient verbally consented to billing insurance company, Patient informed of any privacy concerns related to method of visit Total time spent with patient (mins): 22 Disclaimer: This Telehealth visit is being conducted per CDC recommendations due to the COVID-19 outbreak. Consultation Request Notes Referral Date Referring Provider Referred Provider Not stephanie 07/20/2024 Fly Flor Jonathan Rising u rine microalbumin to creatinine ratio
--- OUTSIDE RECORDS SUMMARY | 2024-10-21 09:51 | XMS_ITS ---
Author Organization Fly Flor DO, FACP Address [address] [facility] [place] [id number] Care Team Providers Care Fuel Buyer Name Role Phone Fly Flor Primary Care Provider ALLERGIES Allergen (clinical drug ingredient) Drug/Non Drug Allergy documented on EMR Reaction Allergy Type Onset Date Status Azithromycin abdominal pain and cramping Drug Allergy Active REASON FOR VISIT 6 month f/u, Follow up hypertension, hypercholesterolemia, type II diabetes mellitus MEDICATIONS Medication SIG (Take, Route, Frequency, Duration) Notes Start Date End Date Status Lisinopril 40 MG 1 tablet Orally Once a day for 90 days Active Tums 500 MG 2 tablets Orally Onc e a day Active Vitamin B-12 1000 MCG 1 tablet Orally On ce a day Active Multivitamins 1 tablet Orally Once a day Active metFORMIN HCl 1000 MG 1 tablet with a me al Orally Twice a day Active Atorvastatin Calcium 40 MG 1 tablet Oral ly Once a day Active SOCIAL HISTORY Tobacco Use: [...] point) Points 1 Interpretation Negative VITAL SIGNS BMI 19.65 kg/m2 05/19/2024 Blood pressure systolic 130 mm Hg 05/19/20 24 Blood pressure diastolic 58 mm Hg 024 Height 61 in 05/19/2024 Weight 104 lbs 05/19/2024 Encounters Encounter Location Date Provider Diagnosis Fly Flor DO, [facility] [address] [place], [place] [phone] 05/19/2024 Fly Flor Essential hypertensi on I10 ; Hypercholesterolemia E78.00 ; Type 2 diabetes mellitus without complication E11.9 and 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 ASSESSMENTS Encounter Date Diagnosis Assessment Notes Treatment Notes Treatment Clinical Notes 05/19/2024 Essential hypertensi on (ICD-10 - I10) 05/19/2024 Hypercholesterolemia (ICD-10 - E78.00) 05/19/2024 Type 2 diabetes alla itus without complication (ICD-10 - E11.9) 05/19/2024 Vitamin B 12 deficie ncy (ICD-10 - E53.8) PLAN OF TREATMENT Medication Medication Name Sig Start Date Stop Date Notes amLODIPine Besylate 10 MG 1 tablet Orally Once a day Lisinopril 40 MG 1 tablet Orally Once a day for 90 days Tums 500 MG 2 tablets Orally Once a day Vitamin B-12 1000 MCG 1 tablet Orally Once a day Multivitamins 1 tablet Orally Once a day metFORMIN HCl 1000 MG 1 tablet with a me al Orally Twice a day Atorvastatin Calcium 40 MG 1 tablet Orally Once a day Next Appt Details Follow Up: 2 Months, Reason: follow up visit,review lab work Progress Notes * Examination Category Sub-Category Detail Notes General Examination GENERAL APPEARANCE: in no ac aracelis distress, well developed, well nourished HEAD: normocephalic, atrau matic HEART: no murmurs, regular rate and rhythm, S1, S2 normal LUNGS: clear to auscultatio n bilaterally ABDOMEN: normal, bowel sounds present, soft, nontender, nondistended SKIN: warm and dry EXTREMITIES: no edema MUSCULOSKELETAL: PSYCH: alert, oriented, cog nitive function intact
== END 2024-10-21 10:07 | disposition home or self-care (01) ==
LOC: HO.HMCSH 09:33
PROVIDERS: PCP Internal Medicine; Visit Provider Physician Assistant Medical
DX: E78.5 Hyperlipidemia, unspecified (principal); E11.9 Type 2 diabetes mellitus without complications; E83.119 Hemochromatosis, unspecified; E53.8 Deficiency of other specified B group vitamins; N60.19 Diffuse cystic mastopathy of unspecified breast

== ENCOUNTER → 2024-10-21 09:33 | Outpatient (BNVA) | payer MEDICARE, SELFPAY | PROVIDERS: PCP Internal Medicine; Visit Provider Physician Assistant Medical | DX: E78.5 Hyperlipidemia, unspecified (principal); E11.9 Type 2 diabetes mellitus without complications; E83.119 Hemochromatosis, unspecified; E53.8 Deficiency of other specified B group vitamins; N60.19 Diffuse cystic mastopathy of unspecified breast | CPT/HCPCS: 99202 ==

== ENCOUNTER 2024-11-13 08:13 | Outpatient (REF) | payer MEDICARE, SELFPAY ==
--- OUTSIDE RECORDS SUMMARY | 2024-11-13 08:21 | XMS_ITS | Clinical Summary ---
Author Organization [facility] [address] [place] [address] Phone Care Team Providers Care Joint Cleaning Machine Operator Name Role Phone Fly Flor DO Primary Care Provider Social History Tobacco Use Types Packs/Day Years Used Date Smoking Tobacco: Never Assessed Comments Unknown Sex and Gender Information Value Date Recorded Sex Assigned at Not on file Legal Sex Female 2:55 PM EST Gender Identity Not on file Sexual Orientation Not on file Plan of Treatment Upcoming Encounters Date Type Department Care Team ([facility] st Contact Info) Description 11/26/2024 4:15 PM EDT Office Visit [facility] [address] [place] [address] Fito Orellana MD [address] [facility] [address] [place] [phone] Health Maintenance Due Date Last Done Comments Pneumococcal Vaccine: 65+ Ye ars (1 of 1 - PCV) 2001 Influenza Vaccine (#1) 2024 Diabetes: Hemoglobin A1C 07/22/2024 Diabetes: Ophthalmology Exam 07/22/2024 Diabetes: Pedal Pulse Checked 07/22/2024 Diabetes: Sensory Foot Exam 07/22/2024 Diabetes: Visual Foot Exam 07/22/2024 Hepatitis B Vaccine Aged Out No longe r eligible based on patient's age to complete this topic Insurance [facility] PPO BLUE([id number]) Care Teams Joint Cleaning Machine Operator Relationship Specialty Start Date End Date Fly Flor DO [address] [place], [place] [address] PCP - General Internal Medicine 07/22/24
[2024-11-13 09:59] LABS: MANUAL DIFF FLAG NO
[2024-11-13 10:07] LABS: Basophils Absolute Auto 0.1 X10*3/uL (0.0-0.2); Basophils Percent Auto 1.3 % (0-2); Eosinophils Absolute Auto 0.6 X10*3/uL (0.0-0.4); Hematocrit 38.2 % (37.0-47.0); Hemoglobin 12.1 g/dl (12.0-16.0); Imm Gran Abs Auto 0.02 X10*3/uL (0.00-0.03); Imm Gran Pct Auto 0.3 % (0.0-0.4); Lymphocytes Absolute Auto 1.7 X10*3/uL (1.2-4.9); Lymphocytes Percent Auto 27.3 % (20-40); Mean Corpuscular HGB Conc 31.7 g/dl (31.0-35.0); Mean Corpuscular Hemoglobin 27.4 pg (27.0-33.0); Mean Corpuscular Volume 86.6 fL (80.0-98.0); Mean Platelet Volume 11.3 fL (9.4-12.3); Monocytes Absolute Auto 0.5 X10*3/uL (0.1-1.2); Monocytes Percent Auto 8.8 % (2-11); Neutrophils Absolute Auto 3.3 x10*3/uL (2.0-8.3); Neutrophils Percent Auto 53.3 % (45-73); Platelet Count 232 X10*3/uL (160-400); Red Blood Count 4.41 X10*6/uL (4.20-5.50); Red Cell Distribution Width 15.5 % (11.0-16.0); White Blood Count 6.1 X10*3/uL (4.8-10.8)
[2024-11-13 10:11] LABS: Estimated Average Glucose 123 mg/dL; Hemoglobin A1C 131.0207 umol/L; Hemoglobin A1c % 5.9 % (<6.0)
[2024-11-13 10:59] LABS: Alanine Aminotransferase 19 U/L (0-31); Albumin Level 4.3 g/dL (3.5-5.0); Alkaline Phosphatase 74 U/L (39-117); Anion Gap 16 (12-20); Aspartate Amino Transferase 26 U/L (5-31); Bilirubin Direct 0.5 mg/dL (0.0-0.5); Bilirubin Total 1.5 mg/dL (0.0-1.0); Blood Urea Nitrogen 14 mg/dL (9-16); C Reactive Protein < 0.04 mg/dL (< or = 0.50); Calcium 9.7 mg/dL (8.4-10.2); Carbon Dioxide 27 mmol/L (22-29); Chloride 104 mmol/L (96-108); Cholesterol 111 mg/dL (<200); Estimated Glomerular Filt Rate > 60; Glucose Fasting 110 mg/dL (60-99); HDL Cholesterol 62 mg/dL (>40); LDL Cholesterol Calculated 35 mg/dL (<100); Magnesium 1.6 mg/dL (1.6-2.6); Potassium 4.5 mmol/L (3.3-5.1); Sodium 142 mmol/L (135-145); Total Protein 7.9 g/dL (6.5-8.0); Triglycerides 71 mg/dL (<150)
[2024-11-13 11:04] LABS: Folate 16.2 ng/mL (> or = 4.0); Vitamin B12 1198 pg/mL (200-900)
[2024-11-13 11:09] LABS: TSH reflex Free T4 3.07 uIU/mL (0.32-4.0); Vitamin D 25-OH Total 48.7 ng/mL (>30)
[2024-11-22 11:44] LABS: Vitamin B1 11 nmol/L (8-30)
== END 2024-11-13 08:14 | disposition home or self-care (01) ==
LOC: HO.HMGCLDS 08:13
PROVIDERS: PCP Internal Medicine; Visit Provider Physician Assistant Medical
DX: Z00.00 Encounter for general adult medical examination without abnormal findings (principal); Z13.1 Encounter for screening for diabetes mellitus; Z13.0 Encounter for screening for diseases of the blood and blood-forming organs and certain disorders involving the immune mechanism; Z13.29 Encounter for screening for other suspected endocrine disorder; Z13.220 Encounter for screening for lipoid disorders
CPT/HCPCS: 36415; 80053; 80061; 80076; 82248; 82306; 82607; 82746; 83036; 83735; 84425; 84443; 85025; 86140

== ENCOUNTER 2024-11-17 13:19 | Outpatient (AMB) | payer MEDICARE, SELFPAY ==
[2024-11-17 13:22] VITALS: BP 162/90; PULSE 98; RESP 14; TEMP 36.6; O2SAT 98; BMI 21.2
--- NOTE | 2024-11-17 13:22 | A.OFFPC_ITS ---
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 Required: No Accompanied by: Self / Same As Patient Allergies azithromycin [From ZITHROMAX] Allergy (Severe, Verified 11/17/24 13:22) SEVERE GI PAIN/PASSED OUT, syncope Tobacco use date assessed: 11/17/24 Fall risk assessment: No Falls in past year Last assessed Fall Risk: 11/17/24 Dental Screening Dental Screen Date: 11/17/24 Did you have a dental visit in the last 12 months?: Yes Did you have a dental problem in the last 6 months where you did not have access to dental care?: No [facility] Medical History (Updated 11/17/24 @ 13:47 by Darell Edwards MD) Essential hypertension History of mammogram (~12/13/23) Fibrocystic breast disease Vitamin B12 deficiency Hemochromatosis Diabetes type 2 Hyperlipidemia Seasonal allergies Osteoarthritis of right hip High cholesterol High blood pressure Diabetes Surgical History Hx of breast biopsy Hx of colonoscopy (~2011) Social History Household Members: None Housing: House Are you a primary career development consultant to a significant other at home: No Do you presently have visiting nurse or other home services: No Patient Tobacco Use Status: Former Tobacco user Tobacco use type: Cigarette Years Smoked: 25 e-Cigarette/Vaping Use: Never Used Second Hand Smoke Exposure: No service: No Current occupational status: retired 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 1. Little interest or pleasure in doing things: not at all 2. Feeling down, depressed, or hopeless: not at all 3. Trouble falling or staying asleep, or sleeping too much: not at all 4. Feeling tired or having little energy: not at all 5. Poor appetite or overeating: not at all 6. Feeling bad about yourself - or that you are a failure or have let yourself or your family down: not at all 7. Trouble concentrating on things, such as reading the newspaper or watching television: not at all 8. Moving or speaking so slowly that other people could have noticed. Or the opposite - being so fidgety or restless that you have been moving around a lot more than usual: not at all 9. Thoughts that you would be better off or of hurting yourself in some way: not at all Total score: 0 Source: Developed by Drs. Fly Ulrich, Alejandrina Goodman, Win Knox and colleagues, with an educational margi from [employer]. Thrive Questionnaire Date Thrive assessed: 11/17/24 I am a: Patient What is your living situation today?: I have a steady place to live Within the past 12 months, did the food you bought not last and you didn't have the money to get more?: Never true Within the past 12 months, did you worry whether your food would run out before you got money to buy more?: Never true Do you have trouble paying for medicines?: No Do you have trouble getting transportation to medical appointments?: No Do you have trouble paying your heating and electricity bill?: No Do you have trouble taking care of your child, family member or friend?: No Do you have trouble with day-to-day activities such as bathing, preparing meals, shopping, managing finances, etc.?: No Are you currently unemployed and looking for a job?: No Are you interested in more education?: No THRIVE Score: 0 AUDIT C Alcohol Use Questionnaire (AUDIT-C) 1. How often do you have a drink containing alcohol?: Never 3. How often do you have six or more drinks on one occasion?: Never Total Score: 0 ROGELIO-7 AMB Questionnaire ROGELIO-7 Date ROGELIO - 7 assessed: 11/17/24 Feeling nervous, anxious, or on edge: 0 = Not at all Not being able to stop or control worryin = Not at all Worrying too much about different things: 0 = Not at all Trouble relaxin = Not at all Being so restless that it is hard to sit still: 0 = Not at all Becoming easily annoyed or irritable: 0 = Not at all Feeling afraid as if something awful might happen: 0 = Not at all Total ROGELIO-7 score (0-4 normal; 5-9 mild; 10-14 moderate; 15-21 severe): 0 Source: Developed by Drs. Fly Ulrich, Alejandrina Goodman, Win Knox and colleagues, with an educational margi from [employer]. Physical exam (Primary Care) Vital Signs: Last Vital Signs Temp 97.9 F 11/17/24 13:22 Pulse 98 11/17/24 13:22 Resp 14 11/17/24 13:22 BP 162/90 H 11/17/24 13:22 Pulse Ox 98 11/17/24 13:22 Oxygen Delivery Method Room Air 11/17/24 13:22 BMI result Body Mass Index 21.2 Tobacco/Smoking Status: Tobacco use Status Tobacco use date assessed 11/17/24 11/17/24 13:24 Patient Tobacco Use Status Former Tobacco user 11/17/24 13:24 Tobacco use type Cigarette 11/17/24 13:24 e-Cigarette/Vaping Use Never Used 11/17/24 13:24 PHQ-9: PHQ-9 Score PHQ-9: Total score 0 11/17/24 13:51 Thrive Assessment: Date of Thrive Assessment Date Thrive assessed 11/17/24 11/17/24 13:24 Coding Level of Care Code New Pt Level 4 (23129) Complex EM visit Add On G2211 Diagnoses Essential hypertension I10 Mitral regurgitation I34.0 Assessment & Plan Assessment & Plan (1) Essential hypertension: Code(s): I10 - Essential (primary) hypertension Category: Medical Plan: BP continues to be elevated. HCTZ added to the regimen. Advised patient to exercise regularly and check blood pressures at home periodically. (2) Mitral regurgitation: Code(s): I34.0 - Nonrheumatic mitral (valve) insufficiency Plan: Patient was not aware of a murmur before. Echocardiogram has been ordered. Plan History of Present Illness The patient is an 88-year-old female presenting with Essential Hypertension. She noted her blood pressure readings remain high, even after using lisinopril 40 mg, with home readings around 160/86 mmHg. Despite these readings, the patient feels well and reports engaging in regular walking. She is aware that age- related stiffening of blood vessels may be contributing to her condition. Additionally, a new systolic heart murmur was identified, which requires further investigation with a cardiac ultrasound, although the patient has been asymptomatic and unaware of its presence until now. 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 - Regular light exercise by walking around her living area. - Maintains social connections with neighbors. Review of Systems - Cardiovascular: Denies swelling in the feet. Physical Exam General: Cooperative and healthy appearing Nutritional Appearance: Well nourished Orientation/consciousness: Patient oriented x3 Limitations: No limitations Head: Normal to inspection General: Appearance normal, both eyes and all related structures Neck: Normal visual inspection Chest: Normal palpation of entire chest wall Respiratory: Normal respiratory effort Neurology: Patient oriented x3 Heart: ESM best heard at the base of the heart. 11/05 Results - Tests: Cardiac ultrasound planned for further evaluation of heart murmur. Plan Initiate the addition of a diuretic to her antihypertensive regimen for better control of her Essential Hypertension. A cardiac ultrasound will be performed to assess the characteristics of the newly detected heart murmur. We agreed on a follow-up visit in one month to monitor the impact of the added medication and to review the findings from the cardiac ultrasound. Patient was informed and verbally consented to the use of an ambient scribe for clinic note documentation during this visit. Discussion Notes I informed the patient about adding a diuretic to her medication regimen to help control her Essential Hypertension and explained that this would reduce her blood pressure by increasing urination without significant side effects. We discussed that this medication has been in use for a long time and has a known side effect profile. Moreover, we spoke about the new systolic heart murmur, which requires evaluation through a cardiac ultrasound to determine its nature. I reassured the patient about the benign nature of most such murmurs. Follow-up has been scheduled for one month to revisit the patient's blood pressure management and to confirm the findings of the cardiac ultrasound. The importance of continued monitoring of her blood pressure at home was emphasized. Patient Instructions - Continue to monitor your blood pressure at home regularly. - Start the new diuretic medication in the morning as prescribed. - Attend the cardiac ultrasound appointment as scheduled. - Return for a follow-up visit in one month. - Maintain physical activity with regular walking as before. - Contact me if you experience any new symptoms or concerns. Orders: Orders CA echo transthoracic complete Today I34.0 - Nonrheumatic mitral (valve) insufficiency Medications: New hydrochlorothiazide 25 mg PO DAILY 90 tabs 1RF
--- OUTSIDE RECORDS SUMMARY | 2024-11-17 15:37 | XMS_ITS | Clinical Summary ---
Author Organization [facility] [address] [place] [address] Phone Care Team Providers Care Investigative Analyst Name Role Phone Fly Flor DO Primary Care Provider Social History Tobacco Use Types Packs/Day Years Used Date Smoking Tobacco: Never Assessed Comments Unknown Sex and Gender Information Value Date Recorded Sex Assigned at Not on file Legal Sex Female 2:55 PM EST Gender Identity Not on file Sexual Orientation Not on file Plan of Treatment Upcoming Encounters Date Type Department Care Team ([facility] st Contact Info) Description 11/26/2024 4:15 PM EDT Office Visit [facility] [address] [place] [address] Fito Orellana MD [address] [facility] [address] [place] [phone] Health Maintenance Due Date Last Done Comments Pneumococcal Vaccine: 65+ Ye ars (1 of 1 - PCV) 2001 Influenza Vaccine (#1) 2024 Diabetes: Hemoglobin A1C 07/22/2024 Diabetes: Ophthalmology Exam 07/22/2024 Diabetes: Pedal Pulse Checked 07/22/2024 Diabetes: Sensory Foot Exam 07/22/2024 Diabetes: Visual Foot Exam 07/22/2024 Hepatitis B Vaccine Aged Out No longe r eligible based on patient's age to complete this topic Insurance [facility] PPO BLUE([id number]) Care Teams Investigative Analyst Relationship Specialty Start Date End Date Fly Flor DO [address] [place], [place] [address] PCP - General Internal Medicine 07/22/24
== END 2024-11-17 13:47 | disposition home or self-care (01) ==
LOC: HO.HMCSH 13:19
PROVIDERS: PCP Internal Medicine; Visit Provider Internal Medicine
DX: I10 Essential (primary) hypertension (principal); I34.0 Nonrheumatic mitral (valve) insufficiency

== ENCOUNTER → 2024-11-17 13:19 | Outpatient (BNVA) | payer MEDICARE, SELFPAY | PROVIDERS: PCP Internal Medicine; Visit Provider Internal Medicine | DX: I10 Essential (primary) hypertension (principal); I34.0 Nonrheumatic mitral (valve) insufficiency | CPT/HCPCS: 99202 ==

== ENCOUNTER 2024-12-22 09:25 | Outpatient (AMB) | payer MEDICARE, SELFPAY ==
[2024-12-22 09:26] VITALS: BP 162/80; PULSE 98; RESP 14; TEMP 36.6; O2SAT 99; BMI 21.0
--- NOTE | 2024-12-22 09:26 | MHC.PC.OV ---
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 Required: No Accompanied by: Self / Same As Patient Allergies azithromycin [From ZITHROMAX] Allergy (Severe, Verified 12/22/24 09:27) SEVERE GI PAIN/PASSED OUT, syncope Tobacco use date assessed: 12/22/24 Fall risk assessment: No Falls in past year Last assessed Fall Risk: 12/22/24 Dental Screening Dental Screen Date: 12/22/24 Did you have a dental visit in the last 12 months?: Yes Did you have a dental problem in the last 6 months where you did not have access to dental care?: No Was dental information given to patient?: Patient has dentist [facility] Medical History (Updated 11/17/24 @ 13:47 by Darell Edwards MD) Essential hypertension History of mammogram (~12/13/23) Fibrocystic breast disease Vitamin B12 deficiency Hemochromatosis Diabetes type 2 Hyperlipidemia Seasonal allergies Osteoarthritis of right hip High cholesterol High blood pressure Diabetes Surgical History Hx of breast biopsy Hx of colonoscopy (~2011) Family History Father No problems noted. Mother No problems noted. 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 1. Little interest or pleasure in doing things: not at all 2. Feeling down, depressed, or hopeless: not at all 3. Trouble falling or staying asleep, or sleeping too much: not at all 4. Feeling tired or having little energy: not at all 5. Poor appetite or overeating: not at all 6. Feeling bad about yourself - or that you are a failure or have let yourself or your family down: not at all 7. Trouble concentrating on things, such as reading the newspaper or watching television: not at all 8. Moving or speaking so slowly that other people could have noticed. Or the opposite - being so fidgety or restless that you have been moving around a lot more than usual: not at all 9. Thoughts that you would be better off or of hurting yourself in some way: not at all Total score: 0 Source: Developed by Drs. Fly Ulrich, Alejandrina Goodman, Win Knox and colleagues, with an educational margi from [employer]. Thrive Questionnaire Date Thrive assessed: 11/17/24 I am a: Patient What is your living situation today?: I have a steady place to live Within the past 12 months, did the food you bought not last and you didn't have the money to get more?: Never true Within the past 12 months, did you worry whether your food would run out before you got money to buy more?: Never true Do you have trouble paying for medicines?: No Do you have trouble getting transportation to medical appointments?: No Do you have trouble paying your heating and electricity bill?: No Do you have trouble taking care of your child, family member or friend?: No Do you have trouble with day-to-day activities such as bathing, preparing meals, shopping, managing finances, etc.?: No Are you currently unemployed and looking for a job?: No Are you interested in more education?: No THRIVE Score: 0 AUDIT C Alcohol Use Questionnaire (AUDIT-C) 1. How often do you have a drink containing alcohol?: Never 3. How often do you have six or more drinks on one occasion?: Never Total Score: 0 ROGELIO-7 AMB Questionnaire ROGELIO-7 Date ROGELIO - 7 assessed: 11/17/24 Feeling nervous, anxious, or on edge: 0 = Not at all Not being able to stop or control worryin = Not at all Worrying too much about different things: 0 = Not at all Trouble relaxin = Not at all Being so restless that it is hard to sit still: 0 = Not at all Becoming easily annoyed or irritable: 0 = Not at all Feeling afraid as if something awful might happen: 0 = Not at all Total ROGELIO-7 score (0-4 normal; 5-9 mild; 10-14 moderate; 15-21 severe): 0 Source: Developed by Drs. Fly Ulrich, Alejandrina Goodman, Win Knox and colleagues, with an educational margi from [employer]. Physical exam (Primary Care) Tobacco/Smoking Status: Tobacco use Status Tobacco use date assessed 11/17/24 11/17/24 13:24 Patient Tobacco Use Status Former Tobacco user 11/17/24 13:24 Tobacco use type Cigarette 11/17/24 13:24 e-Cigarette/Vaping Use Never Used 11/17/24 13:24 Thrive Assessment: Date of Thrive Assessment Date Thrive assessed 11/17/24 11/17/24 13:24 Advance Care Planning discussion: Exists, not on file Date of discussion: 12/22/24 Who was present: Patient Forms completed: Health Care Proxy Time spent: 1-15 minutes, not on file Actual minutes spent: 5 Coding Level of Care Code Est Pt Level 4 (42544) Complex EM visit Add On G2211 Diagnoses Essential hypertension I10 Additional Codes Vital Signs *Quality* - Advance Care Planning discussion: Exists, not on file ([id number]) Vital Signs *Quality* - Time spent: 1-15 minutes, not on file ([id number]) Assessment & Plan Assessment & Plan (1) Essential hypertension: Code(s): I10 - Essential (primary) hypertension Category: Medical Plan: BP recordings in the office continue to be high. However she reports normal blood pressures when she records them at home. I suggested to keep the dosage at the same. Encouraged her to keep the appt for the cardiac ultrasound. Plan History of Present Illness The patient is an 89-year-old female presenting with a follow-up for management of essential hypertension. The patient was previously found to have elevated blood pressure, for which lisinopril and hydrochlorothiazide were prescribed. At this visit, she reports her blood pressure measured 147/74 mmHg the day before, which shows improvement from previous readings, and she continues monitoring regularly. The patient denies experiencing any adverse effects from the medications, including headaches, and she remains able to perform all daily activities without limitation. Social History - The patient is constantly active and engaging in various tasks, indicating a high level of functioning. Review of Systems - Cardiovascular: Reports improvement in blood pressure readings - Neurological: Denies headaches Physical Exam General: Cooperative and healthy appearing Nutritional Appearance: Well nourished Orientation/consciousness: Patient oriented x3 Limitations: No limitations Head: Normal to inspection General: Appearance normal, both eyes and all related structures Neck: Normal visual inspection Chest: Normal palpation of entire chest wall Respiratory: N ormal respiratory effort Neurology: Patient oriented x3, hands are sweaty Results Plan The management of essential hypertension involves continuing the current treatment with lisinopril and hydrochlorothiazide, as there are improvements in blood pressure readings without adverse effects. The patient is scheduled for an echocardiogram on January 04 for evaluation. I will review the results subsequently. Continuation of regular blood pressure monitoring and adherence to treatment are emphasized. The patient is also scheduled for a follow-up with a custom applicator. A reassessment is planned for six months. Patient was informed and verbally consented to the use of an ambient scribe for clinic note documentation during this visit. Discussion Notes During this visit, I discussed the patient's management of essential hypertension. We reviewed her blood pressure trends and her good adherence to medication, which has resulted in improved readings. I confirmed that there have been no side effects, allowing us to continue the current treatment regimen. I addressed her forthcoming echocardiogram on January 04 and reassured her that I will convey the results once available. The scheduling and purpose of her nephrology consultation in December were reviewed, ensuring all follow-up care is aligned. The importance of continuous blood pressure monitoring and adherence to the prescribed medications was emphasized to maintain blood pressure control. Anticipatory guidance and a subsequent six-month follow-up were also outlined. Patient Instructions
--- OUTSIDE RECORDS SUMMARY | 2024-12-22 10:13 | XMS_ITS | Clinical Summary ---
Author Organization [facility] [address] [place] [address] Phone Care Team Providers Care Mold Maker Plaster Name Role Phone Fly Flor DO Primary Care Provider [phone] Medications atorvastatin (LIPITOR) 40 MG tablet 1 (one) time each day Active calcium carbonate (Tums) 500 MG chewable tablet 1 (one) time each day Active lisinopril 40 MG tablet 1 (one) time each day Active metFORMIN (GLUCOPHAGE) 1000 MG tablet 2 (two) times a day Active Active Problems Problem Noted Date Diagnosed Date Diabetes mellitus without me ntion of complication, type II or unspecified type, not stated as uncontrolled Essential hypertension Other and unspecified hyperlipidemia Social History Tobacco Use Types Packs/Day Years Used Date Smoking Tobacco: Never Assessed Comments Unknown Sex and Gender Information Value Date Recorded Sex Assigned at Not on file Legal Sex Female 2:55 PM EST Gender Identity Not on file Sexual Orientation Not on file Plan of Treatment Upcoming Encounters Date Type Department Care Team (Late st Contact Info) Description 01/07/2025 2:30 PM EDT Office Visit [facility] [address] [place] [address] Fito Orellana MD [address] [facility] [address] [place] [address] Health Maintenance Due Date Last Done Comments Pneumococcal Vaccine: 50+ Ye ars (1 of 1 - PCV) 2001 Diabetes: Hemoglobin A1C 07/22/2024 Diabetes: Ophthalmology Exam 07/22/2024 Diabetes: Pedal Pulse Checked 07/22/2024 Diabetes: Sensory Foot Exam 07/22/2024 Diabetes: Visual Foot Exam 07/22/2024 Influenza Vaccine (Season Ended) 2025 Hepatitis B Vaccine Aged Out No longe r eligible based on patient's age to complete this topic Insurance [facility] PPO Jonathon([id number]) Care Teams Mold Maker Plaster Relationship Specialty Start Date End Date Fly Flor DO [address] [place] [address] PCP - General Internal Medicine 07/22/24
== END 2024-12-22 09:44 | disposition home or self-care (01) ==
LOC: HO.HMCSH 09:25
PROVIDERS: PCP Internal Medicine; Visit Provider Internal Medicine
DX: I10 Essential (primary) hypertension (principal); Z00.00 Encounter for general adult medical examination without abnormal findings

== ENCOUNTER → 2024-12-22 09:25 | Outpatient (BNVA) | payer MEDICARE, SELFPAY | PROVIDERS: PCP Internal Medicine; Visit Provider Internal Medicine | DX: I10 Essential (primary) hypertension (principal) | CPT/HCPCS: 99212 ==

== ENCOUNTER → 2025-01-04 07:51 | Outpatient (REF) | payer MEDICARE, SELFPAY ==
--- OUTSIDE RECORDS SUMMARY | 2025-01-04 07:54 | XMS_ITS | Clinical Summary ---
Author Organization [facility] [address] [place] [address] Phone Care Team Providers Care Senior Insight Manager International Name Role Phone Fly Flor DO Primary Care Provider [phone] Medications atorvastatin (LIPITOR) 40 MG tablet 1 [...] Office Visit [facility] [address] [place] [address] Fito Orellana MD [address] [facility] [address] [place] [address] Health Maintenance Due Date Last Done Comments Pneumococcal Vaccine: 50+ Ye ars (1 of 1 - PCV) 1986 Diabetes: Hemoglobin A1C 07/22/2024 Diabetes: Ophthalmology Exam 07/22/2024 Diabetes: Pedal Pulse Checked 07/22/2024 Diabetes: Sensory Foot Exam 07/22/2024 Diabetes: Visual Foot Exam 07/22/2024 Influenza Vaccine (Season Ended) 2025 Hepatitis B Vaccine Aged Out No longe r eligible based on patient's age to complete this topic Insurance [facility] PPO Jonathon([id number]) Care Teams Senior Insight Manager International Relationship Specialty Start Date End Date Fly Flor DO [address] [place] [address] PCP - General Internal Medicine 07/22/24
--- NOTE | 2025-01-04 07:56 | CA_ITS ---
Transthoracic Echocardiogram Patient (Last, First, Middle): Kristina Lopez, Gender: Female Date of : 1935 Age: 89 Procedure Date: 01/04/2025 Procedure Type: Transthoracic Echocardiogram Location: OP Height: 154. 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 The calculated ejection fraction is 66% by biplane method. - No obvious valvular pathology seen on this study. Findings Left Ventricle Normal left ventricular cavity size. There is normal left ventricular wall thickness. The left ventricular systolic function is normal. The calculated ejection fraction is 66% by biplane method. There is no evidence of regional wall motion abnormalities. Evidence suggests grade I (mild) diastolic dysfunction. Right Ventricle Normal right ventricular cavity size and systolic function. Atria Both atria are normal in size. Aortic Valve There is mild calcification of the aortic valve. There is no aortic valve stenosis. There is no aortic valve regurgitation. Mitral Valve There is mild mitral annular calcification. There is no mitral valve regurgitation. There is no mitral valve stenosis. Pulmonic Valve The pulmonic valve is likely normal. Tricuspid Valve There is trace tricuspid valve regurgitation. There is no evidence of pulmonary hypertension. Great Vessels The asc aorta and aortic arch are normal in size. Venous The inferior vena cava is normal in size and collapses greater than 50% with inspiration. Pericardium/Pleural There is no evidence of pericardial effusion. Prior Study Comparison No prior study available for comparison. Recommendations, Care & Conclusions No obvious valvular pathology seen on this study. Measurements 2D Linear Measurements IVSd: 0.71 0.6-0.9/0.6-1.0 cm LVIDd: 4.01 3.9-5.3/4.2-5.9 cm LVIDd Index: 2.82 2.4-3.2/2.2-3.1 cm/m2 LVIDs: 2.02 2.0-3.6 cm LVPWd: 0.84 0.7-1.1 cm LA Diam: 2.90 2.7-3.8/3.0-4.0 cm LAIDs Index: 2.04 1.5-2.3 cm/m2 LV Mass: 110.92 67-162/88-224 g LV Mass Index: 78.12 43-95/49-115 g/m2 LVOT Diam: 2.00 3.0+(-)1.3 cm 2D Systolic Function EF 4C: 59.40 >55% EF 2C: 72.90 >55% EF BiP: 66.40 >55% Mitral Valve MV Pk E: 0.57 MV PK A: 1.00 MV Decel Time: 335.00 E/A: 0.60 E'Lateral: 8.27 E'Medial: 5.00 E/E' Med: 11.40 E/E' Lat: 6.90 PHT: 98.00 MVA PHT: 2.24 Decel [place]: 1.70 Aortic Valve AoV Pk Federico: 1.86 AoV Mn Federico: 1.32 AoV VTI: 0.37 AoV Pk Grad: 14.00 Aov Mn Grad: 8.00 RADHA Cont.VTI: 1.60 LVOT LVOT Pk Federico: 1.11 LVOT Mn Federico: 0.66 LVOT VTI: 0.19 LVOT Pk Grad: 5.00 LVOT Mn Grad: 2.00 LVOT Diam: 2.00 LVOT Area: 3.14 Diastolic Function MV Pk E: 0.57 MV Pk A: 1.00 E/A: 0.60 E'Medial: 5.00 E/E' Med: 11.40 E' Laterial: 8.27 E/E' Lat: 6.90 Right Ventricle TAPSE (mm): 22.20 TVS' Federico: 7.62 Tricuspid Valve RA Press: 3.00 Great Vessels Aorta Sinus of Valsalva: 2.90 2.0-3.5 cm Ao Asc: 3.30 2.1-3.4 cm Ao Arch: 2.60 Pulmonary Valve PV Pk Federico: 0.80 Peak PV Grad: 3.00 Updated in Other Vendor System with Status of Final Mustapha Panchal MD electronically signed on 01/05/2025 3:28:20 PM with status of Final
== END ==
LOC: HO.CARD 07:51
PROVIDERS: PCP Internal Medicine; Visit Provider Internal Medicine
DX: I34.0 Nonrheumatic mitral (valve) insufficiency (principal)
CPT/HCPCS: 93306

== ENCOUNTER → 2025-01-04 07:56 | Outpatient (BNV) | payer MEDICARE, SELFPAY | PROVIDERS: PCP Internal Medicine; Visit Provider Internal Medicine | DX: I35.0 Nonrheumatic aortic (valve) stenosis (principal); I34.81 Nonrheumatic mitral (valve) annulus calcification | CPT/HCPCS: 93306 ==

== ENCOUNTER 2025-06-22 09:27 | Outpatient (AMB) | payer MEDICARE, SELFPAY ==
[2025-06-22 09:27] VITALS: BP 201/95; PULSE 92; TEMP 36.7; O2SAT 97; BMI 21.1
--- NOTE | 2025-06-22 09:27 | A.OFFPC_ITS ---
Vital Signs 06/22/25 09:27 06/22/25 09:54 Height 4 ft 11 in Weight 104 lb 6 oz BMI 21.1 BP 201/95 H 170/80 H Blood Pressure Location Lt brachial Position Sitting Pulse 92 Pulse Source Pulse Oximeter Temp 98.0 F Temp Source Temporal Artery Scan Pulse Oximetry (%) 97 Oxygen Delivery Method Room Air Intake Visit Reasons: 6 month f/u Auger Operator Required: No Accompanied by: Self / Same As Patient Allergies azithromycin (From ZITHROMAX) Allergy (Severe, Verified 06/22/25 09:27) SEVERE GI PAIN/PASSED OUT, syncope Tobacco use date assessed: 06/22/25 Fall risk assessment: No Falls in past year Last assessed Fall Risk: 06/22/25 Dental Screening Dental Screen Date: 06/22/25 Did you have a dental visit in the last 12 months?: No Did you have a dental problem in the last 6 months where you did not have access to dental care?: No Was dental information given to patient?: Patient has dentist [facility] Medical History Essential hypertension History of mammogram (~12/13/23) Fibrocystic breast disease Vitamin B12 deficiency Hemochromatosis Diabetes type 2 Hyperlipidemia Seasonal allergies Osteoarthritis of right hip High cholesterol High blood pressure Diabetes Surgical History Hx of breast biopsy Hx of colonoscopy (~09/05/11) Family History Father No problems noted. Mother No problems noted. 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 1. Little interest or pleasure in doing things: not at all 2. Feeling down, depressed, or hopeless: not at all 3. Trouble falling or staying asleep, or sleeping too much: not at all 4. Feeling tired or having little energy: not at all 5. Poor appetite or overeating: not at all 6. Feeling bad about yourself - or that you are a failure or have let yourself or your family down: not at all 7. Trouble concentrating on things, such as reading the newspaper or watching television: not at all 8. Moving or speaking so slowly that other people could have noticed. Or the opposite - being so fidgety or restless that you have been moving around a lot more than usual: not at all 9. Thoughts that you would be better off or of hurting yourself in some way: not at all Total score: 0 Source: Developed by Drs. Fly Ulrich, Alejandrina Goodman, Win Knox and colleagues, with an educational margi from [employer]. Thrive Questionnaire Date Thrive assessed: 06/22/25 I am a: Patient What is your living situation today?: I have a steady place to live Within the past 12 months, did the food you bought not last and you didn't have the money to get more?: Never true Within the past 12 months, did you worry whether your food would run out before you got money to buy more?: Never true Do you have trouble paying for medicines?: No Do you have trouble getting transportation to medical appointments?: No Do you have trouble paying your heating and electricity bill?: No Do you have trouble taking care of your child, family member or friend?: No Do you have trouble with day-to-day activities such as bathing, preparing meals, shopping, managing finances, etc.?: No Are you currently unemployed and looking for a job?: No Are you interested in more education?: No THRIVE Score: 0 AUDIT C Alcohol Use Questionnaire (AUDIT-C) 1. How often do you have a drink containing alcohol?: Never 3. How often do you have six or more drinks on one occasion?: Never Total Score: 0 ROGELIO-7 AMB Questionnaire ROGELIO-7 Date ROGELIO - 7 assessed: 06/22/25 Feeling nervous, anxious, or on edge: 0 = Not at all Not being able to stop or control worryin = Not at all Worrying too much about different things: 0 = Not at all Trouble relaxin = Not at all Being so restless that it is hard to sit still: 0 = Not at all Becoming easily annoyed or irritable: 0 = Not at all Feeling afraid as if something awful might happen: 0 = Not at all Total ROGELIO-7 score (0-4 normal; 5-9 mild; 10-14 moderate; 15-21 severe): 0 Source: Developed by Drs. Fly Ulrich, Alejandrina Goodman, Win Knox and colleagues, with an educational margi from [employer]. Physical exam (Primary Care) Vital Signs: Last Vital Signs Temp 98.0 F 06/22/25 09:27 Pulse 92 06/22/25 09:27 BP 170/80 H 06/22/25 09:54 Pulse Ox 97 06/22/25 09:27 Oxygen Delivery Method Room Air 06/22/25 09:27 BMI result Body Mass Index 21.1 Tobacco/Smoking Status: Tobacco use Status Tobacco use date assessed 06/22/25 06/22/25 09:34 Patient Tobacco Use Status Former Tobacco user 06/22/25 09:34 Tobacco use type Cigarette 06/22/25 09:34 e-Cigarette/Vaping Use Never Used 06/22/25 09:34 PHQ-9: PHQ-9 Score PHQ-9: Total score 0 06/22/25 09:50 Thrive Assessment: Date of Thrive Assessment Date Thrive assessed 06/22/25 06/22/25 09:34 Office Procedures Flu Questionnaire Does the patient have a severe egg allergy?: No Does the patient have severe life threatening allergies?: No Does the patient have a fever or illness today?: No Has the patient ever had Guillain-Chester Syndrome?: No Has the patient ever had any past reaction to a flu shot?: No Immunizations Fluarix [id number] (PF) 45 mcg (15 mcg x 3)/0.5 mL IM syringe Performing Provider: Darell Edwards MD [place] [facility] [place] [facility] Documented (not given) by: Trini Farrell CMA on 06/22/25 09:35 Reason Not Given: Patient Refused Coding Level of Care Code Est Pt Level 4 (90651) Complex EM visit Add On G2211 Diagnoses Essential hypertension I10 Assessment & Plan Assessment & Plan (1) Essential hypertension: Code(s): I10 - Essential (primary) hypertension Category: Medical Plan: Rpt BP was 170/80. Pt always has elevated BP when she visits the office. She reports lower BP at home. Currently has no symptoms of headaches or blurred vision. Plan History of Present Illness - The patient is an 89-year-old female presenting with a wellness check and management of chronic conditions. - Hypertension: The patient reports that her blood pressure is often elevated during clinic visits, likely due to anxiety, but is well-controlled at home with readings such as 132/70 mmHg and occasionally as low as 116/69 mmHg. - She is currently taking hydrochlorothiazide and lisinopril daily for blood pressure management. - Diabetes mellitus: The patient monitors her blood glucose at home, with a recent reading of 95 mg/dL, indicating good control. - Preventative care: The patient plans to receive her influenza vaccination at a local pharmacy, where she has received it in previous years. Social History Review of Systems - Cardiovascular: Reports elevated blood pressure during clinic visits, denies chest pain or palpitations. - Endocrine: Denies symptoms of hyperglycemia or hypoglycemia, reports stable blood glucose readings. Physical Exam General: Cooperative and healthy appearing Nutritional Appearance: Well nourished Orientation/consciousness: Patient oriented x3 Limitations: No limitations Head: Normal to inspection General: Appearance normal, both eyes and all related structures Neck: Normal visual inspection Chest: Normal palpation of entire chest wall Respiratory: Normal respiratory effort Neurology: Patient oriented x3 Results Plan - Continue current antihypertensive medications, hydrochlorothiazide and lisinopril, and monitor blood pressure at home. - Record blood pressure readings over a week and submit them to the clinic for review. - Maintain current diabetes management plan and monitor blood glucose levels regularly. - Obtain influenza vaccination at the local pharmacy as planned. - Schedule and complete routine blood work as discussed. Discussion Notes I discussed with the patient the importance of continuing her current medications for hypertension and diabetes management. We agreed on the plan to monitor her blood pressure at home and submit the readings for review. I also emphasized the need for routine blood work and obtaining her influenza vaccination at the local pharmacy. Patient Instructions - Continue taking your blood pressure medications as prescribed. - Monitor your blood pressure at home and record the readings for one week. - Submit your blood pressure readings to the clinic after one week. - Keep monitoring your blood sugar levels regularly. - Get your flu shot at the local pharmacy as planned. - Schedule and complete your routine blood work. Orders: Orders Basic Metabolic Panel Today I10 - Essential (primary) hypertension Liver Panel Today I10 - Essential (primary) hypertension Thyroid Stimulating Hormone Today I10 - Essential (primary) hypertension UA and rflx microscopic Today I10 - Essential (primary) hypertension Influenza [id number] Immunization Today Z23 - Encounter for immunization Complete Blood Count no Diff Today I10 - Essential (primary) hypertension Lipid Panel Today I10 - Essential (primary) hypertension
[2025-06-22 09:54] VITALS: BP 170/80
== END 2025-06-22 10:10 | disposition home or self-care (01) ==
LOC: HO.HMCSH 09:27
PROVIDERS: PCP Internal Medicine; Visit Provider Internal Medicine
DX: Z23 Encounter for immunization (principal); I10 Essential (primary) hypertension

== ENCOUNTER → 2025-06-22 09:27 | Outpatient (BNVA) | payer MEDICARE, SELFPAY | PROVIDERS: PCP Internal Medicine; Visit Provider Internal Medicine | DX: I10 Essential (primary) hypertension (principal); Z79.899 Other long term (current) drug therapy; Z28.21 Immunization not carried out because of patient refusal; Z13.30 Encounter for screening examination for mental health and behavioral disorders, unspecified; Z13.39 Encounter for screening examination for other mental health and behavioral disorders | CPT/HCPCS: 90471; 96127; 99212 ==